=== PATIENT | female | born 1990 | race Caucasian/White ===

== ENCOUNTER → 2018-04-22 17:28 | Outpatient (CLI) | payer OTHER, MEDICAID, SELFPAY ==
[2018-04-22 17:44] LABS: Add Manual Diff / Slide Review NO; Basophils Percent Auto 0.3 % (0-2); Eosinophils Percent Auto 0.6 % (2-4); Hematocrit 37.2 % (36-46); Hemoglobin 12.2 g/dL (12.0-16.0); Lymphocytes Percent Auto 34.3 % (25-40); Mean Corpuscular HGB Conc 32.9 % (30-36); Mean Corpuscular Hemoglobin 25.5 PG (26-34); Mean Corpuscular Volume 77.4 fL (80-100); Monocytes Percent Auto 5.7 % (3-14); Neutrophils Absolute Auto 3900 /uL (3000-5900); Neutrophils Percent Auto 59.1 % (50-75); Platelet Count 309 X10^3/uL (150-400); Red Blood Cell Count 4.81 X10^6/uL (4.0-5.2); Red Cell Distribution Width 13.7 % (11.6-14.8); White Blood Cell Count 6.6 X10^3/uL (4.5-11.0)
== END ==
PROVIDERS: Family Provider Obstetrics & Gynecology; PCP Obstetrics & Gynecology; Visit Provider Internal Medicine
DX: Z51.81 Encounter for therapeutic drug level monitoring (principal)
CPT/HCPCS: 36415; 85025

== ENCOUNTER → 2018-06-22 16:25 | Outpatient (CLI) | payer OTHER, MEDICAID, SELFPAY ==
[2018-06-22 17:24] LABS: Add Manual Diff / Slide Review NO; Basophils Percent Auto 0.1 % (0-2); Eosinophils Percent Auto 0.7 % (2-4); Mean Corpuscular HGB Conc 33.3 % (30-36); Mean Corpuscular Volume 78.1 fL (80-100); Monocytes Percent Auto 8.7 % (3-14); Neutrophils Absolute Auto 4600 /uL (3000-5900); Neutrophils Percent Auto 63.5 % (50-75); Platelet Count 288 X10^3/uL (150-400); Red Blood Cell Count 4.61 X10^6/uL (4.0-5.2); Red Cell Distribution Width 13.4 % (11.6-14.8); White Blood Cell Count 7.2 X10^3/uL (4.5-11.0)
== END ==
PROVIDERS: PCP Internal Medicine; Visit Provider Internal Medicine
DX: E05.00 Thyrotoxicosis with diffuse goiter without thyrotoxic crisis or storm (principal)
CPT/HCPCS: 36415; 85025

== ENCOUNTER → 2018-09-12 12:23 | Outpatient (CLI) | payer OTHER, MEDICAID, SELFPAY ==
[2018-09-12 13:14] LABS: Add Manual Diff / Slide Review NO; Basophils Percent Auto 0.4 % (0-2); Hematocrit 38.9 % (36-46); Hemoglobin 12.7 g/dL (12.0-16.0); Lymphocytes Percent Auto 28.5 % (25-40); Mean Corpuscular HGB Conc 32.6 % (30-36); Mean Corpuscular Hemoglobin 25.5 PG (26-34); Mean Corpuscular Volume 78.4 fL (80-100); Monocytes Percent Auto 7.2 % (3-14); Neutrophils Absolute Auto 3700 /uL (3000-5900); Neutrophils Percent Auto 63.9 % (50-75); Platelet Count 298 X10^3/uL (150-400); Red Blood Cell Count 4.96 X10^6/uL (4.0-5.2); Red Cell Distribution Width 13.7 % (11.6-14.8); White Blood Cell Count 5.8 X10^3/uL (4.5-11.0)
[2018-09-12 14:13] LABS: Alanine Aminotransferase 32 IU/L (9-52); Albumin 4.3 g/dL (3.5-5.0); Albumin Globulin Ratio 1.2 (1.0-2.8); Alkaline Phosphatase 85 U/L (38-126); Aspartate Aminotransferase 29 IU/L (14-36); Bilirubin Total 0.3 mg/dL (0.2-1.3); Blood Urea Nitrogen 12 mg/dL (7-17); Carbon Dioxide 27 mmol/L (22-32); Chloride 102 mmol/L (98-107); Estimated Glomerular Filt Rate > 60.0 mL/min (>60); Globulin 3.5 g/dL (1.7-4.1); Glucose 90 mg/dL (70-100); HEMOLYSIS < 15 (0-50); Potassium 4.2 mmol/L (3.4-5.1); Sodium 142 mmol/L (137-145); Total Protein 7.8 g/dL (6.3-8.2)
[2018-09-12 20:58] LABS: Thyroid Stimulating Hormone < 0.02 uIU/mL (0.47-4.68)
[2018-09-14 15:02] LABS: Triiodothyronine T3 Total 200 ng/dL (76-181)
== END ==
PROVIDERS: Family Provider Obstetrics & Gynecology; PCP Internal Medicine; Visit Provider Internal Medicine
DX: Z51.81 Encounter for therapeutic drug level monitoring (principal)
CPT/HCPCS: 36415; 80053; 84439; 84443; 84480; 85025

== ENCOUNTER → 2018-10-24 11:28 | Outpatient (CLI) | payer OTHER, MEDICAID, SELFPAY ==
[2018-10-24 12:15] LABS: Add Manual Diff / Slide Review NO; Basophils Percent Auto 0.4 % (0-2); Hematocrit 38.2 % (36-46); Hemoglobin 12.6 g/dL (12.0-16.0); Lymphocytes Percent Auto 35.2 % (25-40); Mean Corpuscular HGB Conc 33.1 % (30-36); Mean Corpuscular Hemoglobin 26.6 PG (26-34); Mean Corpuscular Volume 80.4 fL (80-100); Monocytes Percent Auto 7.1 % (3-14); Neutrophils Absolute Auto 3400 /uL (1500-7000); Neutrophils Percent Auto 57.3 % (50-75); Platelet Count 329 X10^3/uL (150-400); Red Blood Cell Count 4.75 X10^6/uL (4.0-5.2); Red Cell Distribution Width 14.4 % (11.6-14.8); White Blood Cell Count 5.9 X10^3/uL (4.5-11.0)
[2018-10-24 12:46] LABS: Alanine Aminotransferase 29 IU/L (9-52); Albumin 4.2 g/dL (3.5-5.0); Albumin Globulin Ratio 1.4 (1.0-2.8); Alkaline Phosphatase 82 U/L (38-126); Aspartate Aminotransferase 22 IU/L (14-36); BUN Creatinine Ratio 18.3 (6-22); Bilirubin Total 0.4 mg/dL (0.2-1.3); Blood Urea Nitrogen 11 mg/dL (7-17); Calcium 9.1 mg/dL (8.4-10.2); Carbon Dioxide 29 mmol/L (22-32); Chloride 101 mmol/L (98-107); Estimated Glomerular Filt Rate > 60.0 mL/min (>60); Globulin 3.1 g/dL (1.7-4.1); Glucose 69 mg/dL (70-100); HEMOLYSIS < 15 (0-50); Potassium 4.5 mmol/L (3.4-5.1); Sodium 140 mmol/L (137-145); Total Protein 7.3 g/dL (6.3-8.2)
[2018-10-24 13:02] LABS: Free T4, Direct Thyroxine 1.07 ng/dL (0.78-2.19)
[2018-10-24 13:16] LABS: Thyroid Stimulating Hormone < 0.02 uIU/mL (0.47-4.68)
== END ==
PROVIDERS: PCP Internal Medicine; Visit Provider Internal Medicine
DX: E05.00 Thyrotoxicosis with diffuse goiter without thyrotoxic crisis or storm (principal)
CPT/HCPCS: 36415; 80053; 84439; 84443; 85025

== ENCOUNTER → 2018-12-21 11:09 | Outpatient (CLI) | payer OTHER, MEDICAID, SELFPAY ==
--- NOTE | 2018-12-21 11:11 | DI.US.S_ITS ---
PROCEDURE: US PELVIC COMPLETE INDICATIONS: Left side pain, hx ovarian cyst TECHNIQUE: Real-time scanning was performed of the pelvic organs, with image documentation. Additional endovaginal scanning was necessary due to incomplete visualization of the adnexal and endometrial structures by transabdominal scanning. COMPARISON: [facility], US, PELVIC COMPLETE, 01/04/2018, 16:13. [facility], US, PELVIC COMPLETE, 12/03/2017, 12:18. [facility], US, PELVIC COMPLETE, 02/15/2018, 11:10. FINDINGS: Transabdominal scanning: Limited scanning through the kidneys shows no hydronephrosis. There is a small amount of free fluid seen within the left adnexal region. Endovaginal scanning: Uterus: Uterus is normal in size at 8.5 x 4.7 x 5.4 cm. The endometrium measures 13 mm in combined thickness. Ovaries: The right ovary measures 3.5 x 2.2 x 2.5 cm. The left ovary measures 4.3 by 2 x 2 0.6 cm and demonstrates a complex cyst with peripheral vascular flow that measures up to 19 mm. The ovaries otherwise have a normal sonographic appearance. No adnexal masses are seen. IMPRESSION: There is a likely hemorrhagic cyst involving the left ovary, with mild free fluid seen within the left adnexal region. At clinical discretion, a followup pelvic ultrasound is suggested in 6 weeks to assure resolution/ improvement. Dictated by: Jeff Paulino M.D. on 12/21/2018 at 12:23 Approved by: Jeff Paulino M.D. on 12/21/2018 at 12:27
== END ==
PROVIDERS: Family Provider Obstetrics & Gynecology; Visit Provider Obstetrics & Gynecology
DX: N83.292 Other ovarian cyst, left side (principal)
CPT/HCPCS: 76856

== ENCOUNTER → 2018-12-21 11:56 | Outpatient (CLI) | payer OTHER, MEDICAID, SELFPAY ==
[2018-12-21 12:32] LABS: Add Manual Diff / Slide Review NO; Basophils Absolute Auto 0 /uL (0-100); Basophils Percent Auto 0.3 % (0-2); Eosinophils Absolute Auto 0 /uL (0-450); Eosinophils Percent Auto 0.1 % (2-4); Hematocrit 39.4 % (36-46); Hemoglobin 12.6 g/dL (12.0-16.0); Lymphocytes Absolute Auto 2100 /uL (1100-4500); Lymphocytes Percent Auto 31.7 % (25-40); Mean Corpuscular Hemoglobin 26.2 PG (26-34); Mean Corpuscular Volume 81.8 fL (80-100); Monocytes Absolute Auto 400 /uL (0-900); Monocytes Percent Auto 5.8 % (3-14); Neutrophils Absolute Auto 4000 /uL (1500-7000); Neutrophils Percent Auto 62.1 % (50-75); Platelet Count 312 X10^3/uL (150-400); Red Blood Cell Count 4.82 X10^6/uL (4.0-5.2); Red Cell Distribution Width 14.9 % (11.6-14.8); White Blood Cell Count 6.5 X10^3/uL (4.5-11.0)
[2018-12-23 12:24] LABS: Alanine Aminotransferase 35 IU/L (9-52); Albumin 4.4 g/dL (3.5-5.0); Albumin Globulin Ratio 1.3 (1.0-2.8); Alkaline Phosphatase 66 U/L (38-126); Aspartate Aminotransferase 25 IU/L (14-36); Bilirubin Total 0.3 mg/dL (0.2-1.3); Blood Urea Nitrogen 12 mg/dL (7-17); Calcium 9.1 mg/dL (8.4-10.2); Carbon Dioxide 26 mmol/L (22-32); Chloride 102 mmol/L (98-107); Estimated Glomerular Filt Rate > 60.0 mL/min (>60); Globulin 3.3 g/dL (1.7-4.1); Glucose 83 mg/dL (70-100); HEMOLYSIS < 15 (0-50); Potassium 4.2 mmol/L (3.4-5.1); Sodium 139 mmol/L (137-145); Total Protein 7.7 g/dL (6.3-8.2)
[2018-12-23 12:41] LABS: Free T4, Direct Thyroxine 0.87 ng/dL (0.78-2.19)
[2018-12-23 12:55] LABS: Thyroid Stimulating Hormone < 0.02 uIU/mL (0.47-4.68)
== END ==
PROVIDERS: Family Provider Obstetrics & Gynecology; Visit Provider Internal Medicine
DX: E05.00 Thyrotoxicosis with diffuse goiter without thyrotoxic crisis or storm (principal)
CPT/HCPCS: 36415; 80053; 84439; 84443; 85025

== ENCOUNTER 2019-02-02 08:23 | Day surgery (SDC) | payer OTHER, MEDICAID, SELFPAY ==
[2019-01-24 07:27] VITALS: BMI 39.6
[2019-02-02] VITALS (14 sets, daily range): BP systolic 75–124; BP diastolic 43–81; PULSE 72–97; RESP 10–19; TEMP 36.6–37.4; O2SAT 96–100; BMI 43.7
--- NOTE | 2019-02-02 | PATH_ITS ---
[facility] Accession Number: [id number] . 01 Material submitted: . body - LEFT FALLOPIAN TUBE AND OVARY . 02 Diagnosis: Left Ovary and Fallopian Tube: Multiple benign serous cysts, ovary. Multiple follicular cysts, ovary. Fallopian tube unremarkable. MRV/02/06/2019 . 02 Electronically signed: . Hakeem Carranza MD, Pathologist NPI- [id number] . 01 Gross description: . Received in formalin, labeled with the patient's name and left fallopian tube and ovary, is an ovary and a detached fallopian tube. The ovary weighs 10 grams and measures 4.0 x 2.9 x 1.8 cm. The external surface of the ovary is brooks-perdue and cerebriform. The cut surface of the ovary is perdue-brown with a well-defined 1.1 cm yellow nodule resembling corpus luteum. There are also multiple intraparenchymal cysts ranging from 0.3 to 1.1 cm with a smooth lining and filled with serous fluid. The fallopian tube has a red-brown external surface and measures 3.7 cm in length by 0.6 cm in diameter. [employer] sections are submitted as follows: A1-A3 - ovary; A4 - fallopian tube cross-sections and fimbriated end. (BINTA:[id number]) /MRV . 02 Pathologist provided ICD-10: N83.202 . 02 CPT . 041751 Performed at: 01 [facility] [address] [id number] MD Bhavik Chance MD Phone: [phone] Performed at: 02 [facility] [address] [place], [place] [id number] MD Marbella Ventura MD Phone: [phone]
[2019-02-02] MEDS: LACTATED RINGERS 1,000 ML 42 ML IV ×2 (08:45→12:04)
--- NOTE | 2019-02-02 10:07 | PM.PREOP ---
Pre-operative Note Interval Note History & Physical reviewed/Exam performed by Physician: Yes Changes to H&P: No
--- NOTE | 2019-02-02 10:07 | PM.HP.1 ---
History of Present Illness Date Patient Seen: 02/02/19 Time Patient Seen: 10:08 Chief complaint: [id number] Narrative: Patient is a 28-year-old 3 para 3 who presents for a laparoscopic left salpingo oophorectomy due to a persistent left ovarian mass Patient History Medical History (Updated 01/24/19 @ 07:38 by Love Irizarry RN) Anxiety and depression (Acute) Graves' disease (Acute) Sinus infection (Acute ~07/2018) Anemia (Chronic ~2013) Chronic back pain (Chronic ~2006) Headache (Chronic ~2006) Migraines (Chronic ~2006) Ovarian cyst (Chronic ~2014) Chicken pox (Resolved ~1999) Surgical History (Updated 04/04/18 @ 15:04 by Ashly Wright) Status post laparoscopic cholecystectomy (~2013) Family History (Updated 04/04/18 @ 15:03 by Ashly Wright) Grandmother Age: 76 Hypertension High cholesterol Mental health problem Stroke Diabetes mellitus Kidney failure Mother Age: 46 Depression Colitis Arthritis Smoker Early menopause Grandfather No problems noted. Social History household members: spouse and children Smoking Status: Never smoker alcohol intake: current Family & Social History Family History (Updated 04/04/18 @ 15:03 by Ashly Wright) Grandmother Age: 76 Hypertension High cholesterol Mental health problem Stroke Diabetes mellitus Kidney failure Mother Age: 46 Depression Colitis Arthritis Smoker Early menopause Grandfather No problems noted. Social History: household members spouse,children Tobacco & Substance use: Smoking Status Never smoker alcohol intake current alcohol intake frequency holiday/special occasion Substance Use Type does not use Meds Home Medications Medication Instructions Recorded Confirmed Type methimazole 5 mg tablet 15 mg PO TID tab 08/10/18 02/02/19 History sertraline [Zoloft] 50 mg PO QDAY #90 tab 08/15/18 02/02/19 Rx calcium carbonate [Tums] 300 mg PO PRN PRN 02/02/19 02/02/19 History Allergies Allergy/AdvReac Type Severity Reaction Status Date / Time oxycodone [From Percocet] AdvReac Intermediate Vomiting Verified 02/02/19 08:38 Exam Vital Signs (past 8 hours): - 02/02/19 08:46 Temperature 99.1 F Pulse Rate 97 H Respiratory Rate 16 Blood Pressure 116/81 Pulse Oximetry 99 Oxygen Delivery Method Room Air Narrative Exam Narrative: HEENT: No thyromegaly, no anterior cervical or supraclavicular lymphadenopathy. Lungs:Clear to auscultation bilaterally, no wheezes. Cardiovascular: Regular rate and rhythm, no murmurs, rubs, or gallops. Abdomen: Well-healed laparoscopy scars. No hepatosplenomegaly. No masses palpable. External genitalia: Normal Vagina: Normal Cervix: Normal Bimanual exam: 7 Week size uterus. Mobile. Rectal: No masses. Ultrasound: Persistent complex left ovarian mass Assessment & Plan Assessment & Plan narrative: Assessment: 28-year-old 3 para 3 with a persistent left ovarian complex mass Plan: Laparoscopic left salpingo oophorectomy The risks, benefits, and alternatives to the procedure were explained to the patient. The risks including bleeding, infection, injury to the bowel, bladder, or ureters. She understands these risks and agrees to proceed. The consent form was signed. Time Spent With Patient Time with patient: 15-24 minutes
--- NOTE | 2019-02-02 11:13 | SUR.OPER ---
Lithotomy on padded OR bed, head on pillow, both arms padded and tucked.. Legs secured in padded yellow fins stirrups.
[2019-02-02] MEDS: BUPIVACAINE 0.5% W/ EPI (PF) VIAL 30 ML INJ (11:20)
[2019-02-02] MEDS: KETOROLAC 30 MG/ML VIAL IV (12:00)
[2019-02-02] MEDS: HYDROCODONE/ACET 5/325 TABLET 2 TAB PO (12:55)
--- NOTE | 2019-02-02 13:10 | SUR.PHASEII ---
pt tolerating po fluids and apple sauce, IV patent and infusing, abdomen dressings remain dry and intact, pperi pad with small amt of drainage, pt medicated for c/o cramps coming back a little bit
--- NOTE | 2019-02-02 13:51 | SUR.PHASEII ---
Report received from Damien, who stated she had reviewed d/c instructions
--- NOTE | 2019-02-08 06:54 | PM.GYNOP.1 ---
Operative Date/Time/Diagnoses Date of procedure: 02/02/19 Time of procedure: 11:30 Pre-op diagnosis: Left ovarian cyst Post-op diagnosis: same Procedure: Procedures Operation Date: 02/02/19 10:00 Actual Procedures Side Surgeon p Laparoscopic Oophorectomy Salpingoophorectomy Left Dominga Gallo MD Indications: Persistent left ovarian cyst Surgeon: Dominga Gallo Anesthesia Type: General Operative Notes Findings: 5 cm left ovarian cyst Normal tubes Normal uterus Normal liver and appendix Closure Type: primary Specimen(s): left tube & ovary Estimated blood loss (mL): 5 Procedure in detail: After informed consent was obtained, the patient was taken to the operating room where she was placed in the dorsal supine position. After adequate general endotracheal anesthesia was achieved, she was placed in the dorsal lithotomy position, and prepped and draped in the usual sterile fashion. A time-out was performed. A bivalve speculum was placed into the vagina and the anterior lip of the cervix grasped with a single-tooth tenaculum. The cervical os was sequentially dilated until the Zumi uterine manipulator could pass easily into the endometrial cavity. The single-tooth tenaculum was removed from the anterior lip of the cervix. The bivalve speculum was removed from the vagina. Attention was then turned to the abdomen where 6 cc of 0.5% Marcaine with epinephrine were injected in the umbilical fold. A 5 mm incision was made. The long Veress needle was placed into the peritoneal cavity, and its placement confirmed by aspiration drop test. The abdominal cavity was insufflated with 4.5 L of CO2. The Veress needle was removed, and a long 5 mm trocar was placed without difficulty. 2 other 5 mm incisions were made midway between the pubic symphysis and umbilicus, 4 cm lateral to the midline. 2 long 5 mm trocars were placed under direct visualization. the pelvis and abdomen were examined with the findings noted above. An atraumatic grasper was used to grasp the left tube at the fimbriated end. Using the PlasmaKinetic was settings of 40 w, the infundibulopelvic ligament on the left side was cauterized and cut as was the broad ligament. This was continued all the way down to the cornua of the uterus and the tube was transected at the cornu of the uterus. Hemostasis was achieved. The umbilical trocar was removed. The incision was extended to 10 mm. A long 10 mm trocar was placed. the endobag was placed through the umbilical trocar and the camera was moved to the right lateral trocar. The left tube and ovary were placed into the endobag. The trocar was removed. a needle was placed into the left ovary and 10 cc of fluid were drained. The tube and ovary were then removed inside the endobag through the umbilical incision. The pelvis was examined and hemostasis was achieved. The instruments were removed from the abdomen. The CO2 was allowed to escape. The umbilical incision was closed on the fascia with 0 Vicryl. All of the incisions were closed with 4 0 undyed Vicryl in a subcuticular fashion. Steri-Strips, 2 x 2, and op site were placed. The Zumi uterine manipulator was removed from the uterus. Sponge, lap, and instrument counts were correct x2. The patient tolerated the procedure well and was taken to PACU in stable condition. Complications: none Post-operative Condition: stable Disposition: PACU Plan for aftercare: Home after recovery
== END 2019-02-02 13:35 | disposition home or self-care (01) ==
PROVIDERS: Visit Provider Obstetrics & Gynecology
PROC: (CPT 58661; principal; 2019-02-02 10:00)
DX: N83.202 Unspecified ovarian cyst, left side (principal); F41.9 Anxiety disorder, unspecified; F32.9 Major depressive disorder, single episode, unspecified; E05.00 Thyrotoxicosis with diffuse goiter without thyrotoxic crisis or storm; D64.9 Anemia, unspecified
CPT/HCPCS: 58661; J0330; J1100; J1885; J2405; J2704; J3010

== ENCOUNTER → 2019-03-22 13:40 | Outpatient (CLI) | payer OTHER, MEDICAID, SELFPAY ==
[2019-03-22 14:40] LABS: Add Manual Diff / Slide Review NO; Basophils Absolute Auto 0 /uL (0-100); Basophils Percent Auto 0.5 % (0-2); Eosinophils Absolute Auto 0 /uL (0-450); Eosinophils Percent Auto 0.3 % (2-4); Hematocrit 38.4 % (36-46); Hemoglobin 12.6 g/dL (12.0-16.0); Lymphocytes Absolute Auto 1800 /uL (1100-4500); Lymphocytes Percent Auto 28.3 % (25-40); Mean Corpuscular HGB Conc 32.8 % (30-36); Mean Corpuscular Hemoglobin 27.2 PG (26-34); Mean Corpuscular Volume 83.1 fL (80-100); Monocytes Absolute Auto 400 /uL (0-900); Monocytes Percent Auto 6.1 % (3-14); Neutrophils Absolute Auto 4100 /uL (1500-7000); Neutrophils Percent Auto 64.8 % (50-75); Platelet Count 305 X10^3/uL (150-400); Red Blood Cell Count 4.62 X10^6/uL (4.0-5.2); Red Cell Distribution Width 14.7 % (11.6-14.8); White Blood Cell Count 6.3 X10^3/uL (4.5-11.0)
[2019-03-22 14:51] LABS: Alanine Aminotransferase 25 IU/L (9-52); Albumin 4.4 g/dL (3.5-5.0); Albumin Globulin Ratio 1.2 (1.0-2.8); Alkaline Phosphatase 65 U/L (38-126); Aspartate Aminotransferase 24 IU/L (14-36); Bilirubin Total 0.3 mg/dL (0.2-1.3); Blood Urea Nitrogen 12 mg/dL (7-17); Calcium 9.7 mg/dL (8.4-10.2); Carbon Dioxide 31 mmol/L (22-32); Chloride 102 mmol/L (98-107); Estimated Glomerular Filt Rate > 60.0 mL/min (>60); Globulin 3.6 g/dL (1.7-4.1); Glucose 77 mg/dL (70-100); HEMOLYSIS < 15 (0-50); Sodium 140 mmol/L (137-145)
[2019-03-22 16:00] LABS: Free T4, Direct Thyroxine 0.66 ng/dL (0.78-2.19)
[2019-03-22 16:13] LABS: Thyroid Stimulating Hormone 5.55 uIU/mL (0.47-4.68)
== END ==
PROVIDERS: Visit Provider Internal Medicine
DX: E05.00 Thyrotoxicosis with diffuse goiter without thyrotoxic crisis or storm (principal); Z51.81 Encounter for therapeutic drug level monitoring
CPT/HCPCS: 36415; 80053; 84439; 84443; 85025

== ENCOUNTER → 2019-05-24 14:59 | Outpatient (CLI) | payer OTHER, MEDICAID, SELFPAY ==
[2019-05-24 15:35] LABS: Add Manual Diff / Slide Review NO; Basophils Absolute Auto 0 /uL (0-100); Basophils Percent Auto 0.6 % (0-2); Eosinophils Absolute Auto 100 /uL (0-450); Eosinophils Percent Auto 1.2 % (2-4); Hemoglobin 11.9 g/dL (12.0-16.0); Lymphocytes Absolute Auto 2200 /uL (1100-4500); Lymphocytes Percent Auto 28.2 % (25-40); Mean Corpuscular HGB Conc 33.2 % (30-36); Mean Corpuscular Hemoglobin 27.5 PG (26-34); Monocytes Absolute Auto 500 /uL (0-900); Monocytes Percent Auto 6.6 % (3-14); Neutrophils Absolute Auto 4800 /uL (1500-7000); Neutrophils Percent Auto 63.4 % (50-75); Platelet Count 293 X10^3/uL (150-400); Red Blood Cell Count 4.34 X10^6/uL (4.0-5.2); Red Cell Distribution Width 13.8 % (11.6-14.8); White Blood Cell Count 7.6 X10^3/uL (4.5-11.0)
[2019-05-24 16:35] LABS: Alanine Aminotransferase 24 IU/L (9-52); Albumin 4.1 g/dL (3.5-5.0); Albumin Globulin Ratio 1.4 (1.0-2.8); Alkaline Phosphatase 51 U/L (38-126); Aspartate Aminotransferase 21 IU/L (14-36); Bilirubin Total 0.5 mg/dL (0.2-1.3); Blood Urea Nitrogen 12 mg/dL (7-17); Calcium 9.6 mg/dL (8.4-10.2); Carbon Dioxide 29 mmol/L (22-32); Chloride 100 mmol/L (98-107); Estimated Glomerular Filt Rate > 60.0 mL/min (>60); Glucose 85 mg/dL (70-100); HEMOLYSIS < 15 (0-50); Potassium 4.3 mmol/L (3.4-5.1); Sodium 139 mmol/L (137-145); Total Protein 7.1 g/dL (6.3-8.2)
[2019-05-24 16:51] LABS: Free T4, Direct Thyroxine 0.79 ng/dL (0.78-2.19)
[2019-05-24 17:06] LABS: Thyroid Stimulating Hormone 2.85 uIU/mL (0.47-4.68)
== END ==
PROVIDERS: Visit Provider Internal Medicine
DX: E05.00 Thyrotoxicosis with diffuse goiter without thyrotoxic crisis or storm (principal); Z51.81 Encounter for therapeutic drug level monitoring
CPT/HCPCS: 36415; 80053; 84439; 84443; 85025

== ENCOUNTER → 2019-07-31 07:41 | Outpatient (CLI) | payer OTHER, MEDICAID, SELFPAY ==
[2019-07-31 08:46] LABS: Add Manual Diff / Slide Review NO; Basophils Absolute Auto 0 /uL (0-100); Basophils Percent Auto 0.8 % (0-2); Eosinophils Absolute Auto 100 /uL (0-450); Eosinophils Percent Auto 1.2 % (2-4); Hematocrit 38.2 % (36-46); Hemoglobin 12.6 g/dL (12.0-16.0); Lymphocytes Absolute Auto 2000 /uL (1100-4500); Lymphocytes Percent Auto 34.2 % (25-40); Mean Corpuscular Hemoglobin 27.3 PG (26-34); Mean Corpuscular Volume 82.7 fL (80-100); Monocytes Absolute Auto 400 /uL (0-900); Neutrophils Absolute Auto 3500 /uL (1500-7000); Neutrophils Percent Auto 57.8 % (50-75); Platelet Count 322 X10^3/uL (150-400); Red Blood Cell Count 4.62 X10^6/uL (4.0-5.2); Red Cell Distribution Width 13.9 % (11.6-14.8)
[2019-07-31 09:11] LABS: Free T4, Direct Thyroxine 1.06 ng/dL (0.78-2.19)
[2019-07-31 09:25] LABS: Thyroid Stimulating Hormone 0.95 uIU/mL (0.47-4.68)
[2019-08-02 17:04] LABS: Triiodothyronine T3 Total 122 ng/dL (76-181)
== END ==
PROVIDERS: Visit Provider Internal Medicine
DX: E05.00 Thyrotoxicosis with diffuse goiter without thyrotoxic crisis or storm (principal); E05.90 Thyrotoxicosis, unspecified without thyrotoxic crisis or storm
CPT/HCPCS: 36415; 84439; 84443; 84480; 85025

== ENCOUNTER 2020-04-28 13:00 | Emergency (ER) | payer SELFPAY ==
[2020-04-28] VITALS (9 sets, daily range): BP systolic 99–121; BP diastolic 56–75; PULSE 69–90; RESP 14–16; TEMP 36.8; O2SAT 92–100
[2020-04-28] MEDS: SODIUM CHLORIDE 0.9% 1,000 ML 1000 ML IV (14:14)
[2020-04-28 14:23] LABS: Add Manual Diff / Slide Review NO; Basophils Absolute Auto 0 /uL (0-100); Basophils Percent Auto 0.3 % (0-2); Eosinophils Absolute Auto 100 /uL (0-450); Eosinophils Percent Auto 0.6 % (2-4); Hematocrit 38.4 % (36-46); Hemoglobin 12.8 g/dL (12.0-16.0); Lymphocytes Absolute Auto 1600 /uL (1100-4500); Mean Corpuscular HGB Conc 33.3 % (30-36); Mean Corpuscular Hemoglobin 27.2 PG (26-34); Mean Corpuscular Volume 81.6 fL (80-100); Monocytes Absolute Auto 500 /uL (0-900); Monocytes Percent Auto 5.7 % (3-14); Neutrophils Absolute Auto 7300 /uL (1500-7000); Neutrophils Percent Auto 76.4 % (50-75); Platelet Count 282 X10^3/uL (150-400); Red Blood Cell Count 4.71 X10^6/uL (4.0-5.2); Red Cell Distribution Width 14.5 % (11.6-14.8); White Blood Cell Count 9.6 X10^3/uL (4.5-11.0)
[2020-04-28 14:32] LABS: Alanine Aminotransferase 22 IU/L (<35); Albumin 4.5 g/dL (3.5-5.0); Albumin Globulin Ratio 1.3 (1.0-2.8); Alkaline Phosphatase 62 U/L (38-126); Amylase 63 U/L (30-110); Aspartate Aminotransferase 27 IU/L (14-36); BUN Creatinine Ratio 15.3 (6-22); Bilirubin Total 0.4 mg/dL (0.2-1.3); Blood Urea Nitrogen 9 mg/dL (7-17); Calcium 9.4 mg/dL (8.4-10.2); Carbon Dioxide 26 mmol/L (22-32); Chloride 103 mmol/L (98-107); Estimated Glomerular Filt Rate > 60.0 mL/min (>60); Globulin 3.4 g/dL (1.7-4.1); Glucose 98 mg/dL (70-100); HEMOLYSIS < 15 (0-50); Lipase 65 U/L (23-300); Potassium 3.9 mmol/L (3.4-5.1); Sodium 137 mmol/L (137-145); Total Protein 7.9 g/dL (6.3-8.2)
--- NOTE | 2020-04-28 14:36 | DI.US.S_ITS ---
PROCEDURE: US PELVIC COMPLETE INDICATIONS: PAIN TECHNIQUE: Real-time scanning was performed of the pelvic organs, with image documentation. Additional endovaginal scanning was necessary due to incomplete visualization of the adnexal and endometrial structures by transabdominal scanning. COMPARISON: None. FINDINGS: Transabdominal scanning: Limited scanning through the kidneys shows no hydronephrosis. No pathologic free abdominal or pelvic fluid. Endovaginal scanning: Uterus: Uterus is normal in size at 6.9 x 4.3 x 5.4 cm. The endometrium measures 8 mm in combined thickness. Ovaries: Right ovary measures 6.0 x 2.9 x 2.8 cm. It contains a probable hemorrhagic cyst measuring 2.6 x 1.8 x 2.3 cm. There is normal intraovarian flow in the right ovary. Left ovary is surgically absent. No abnormal adnexal masses or fluid collections. IMPRESSION: 1. Probable hemorrhagic cyst of the right ovary measuring 2.6 cm in maximum diameter. 2. Otherwise unremarkable pelvic ultrasound. Dictated by: Ricardo Waldrop M.D. on 04/28/2020 at 14:37 Approved by: Ricardo Waldrop M.D. on 04/28/2020 at 14:39
[2020-04-28] MEDS: MORPHINE 4 MG/ML INJ IV (14:56)
[2020-04-28] MEDS: ONDANSETRON 4 MG/2 ML INJ IV ×2 (14:57→16:16)
[2020-04-28] MEDS: HYDROCODONE/ACET 5/325 TABLET 1 TAB PO (16:16)
--- NOTE | 2020-04-28 17:43 | ED.FEMALEGU ---
HPI - Female Genitourinary <LILIBETH Zhao - Last Filed: 04/28/20 17:52> General Chief complaint: Urogenital-Female Stated complaint: Pelvic Pain and Pressure Time Seen by Provider: 04/28/20 13:32 Source: patient Mode of arrival: Ambulatory Limitations: no limitations History of Present Illness HPI Narrative: The patient is a 29-year-old female nonsmoker with history of ovarian cyst who presents with a chief complaint of pelvic pain. It started earlier today all of a sudden. She has history of a complex left ovarian cyst and subsequently had surgery to remove her ovary. She denies any fevers, complains of nausea no vomiting. She denies any dysuria urgency or frequency. She denies any possibility of . She denies any possibility of sexually transmitted infections. She denies any vaginal discharge or vaginal bleeding. She does not have an IUD. She tracks her menstrual cycles and states that she ovulated last week. She denies any genital rashes. Related Data Home Medications Medication Instructions Recorded Confirmed methimazole 5 mg tablet 15 mg PO TID tab 08/10/18 02/20/19 calcium carbonate [Tums] 300 mg PO PRN PRN 02/02/19 02/20/19 Previous Rx's Medication Instructions Recorded sertraline [Zoloft] 50 mg PO QDAY #90 tab 04/24/19 hydrocodone-acetaminophen [Tad] 1 tab PO Q4-6H PRN #7 tab 04/28/20 ketorolac 10 mg PO TID #15 tab 04/28/20 ondansetron 4 mg PO Q6H PRN #10 tab 04/28/20 Allergies Allergy/AdvReac Type Severity Reaction Status Date / Time oxycodone [From Percocet] AdvReac Intermediate Vomiting Verified 02/20/19 14:35 Review of Systems <LILIBETH Zhao - Last Filed: 04/28/20 17:52> Review of Systems Narrative: GENERAL: Denies chills, fatigue, malaise, fever, sweats. HEENT: Denies sinus pain, ear pain, sore throat, difficulty swallowing, dizziness. RESPIRATORY: Denies dyspnea, cough, wheezing, hemoptysis, sputum. CARDIOVASCULAR: Denies chest pain, palpitations, orthopnea, edema, GASTROINTESTINAL: Denies nausea, vomiting, abdominal pain, diarrhea, constipation, melena. : See HPI MUSCULOSKELETAL: denies weakness, joint pain, or bony pain SKIN: Denies rash, skin lesions, or other NEUROLOGIC: Denies weakness, headache, numbness, change in speech, confusion, seizures, incoordination. PSYCHIATRIC: No concerning psychosocial issues. 12 point review of systems is negative except for those stated above Patient History <LILIBETH Zhao - Last Filed: 04/28/20 17:52> Medical History Anemia (Chronic ~2013) Anxiety and depression (Acute) Chicken pox (Resolved ~1999) Chronic back pain (Chronic ~2006) Graves' disease (Acute) Headache (Chronic ~2006) Migraines (Chronic ~2006) Ovarian cyst (Chronic ~2014) Sinus infection (Acute ~07/2018) Surgical History Status post laparoscopic cholecystectomy (~2013) Family History Grandmother Age: 78 Hypertension High cholesterol Mental health problem Stroke Diabetes mellitus Kidney failure Mother Age: 48 Depression Colitis Arthritis Smoker Early menopause Grandfather No problems noted. alcohol intake frequency: holidays/special occasions only Substance Use Type: does not use Exam <LILIBETH Zhao - Last Filed: 04/28/20 17:52> Narrative Exam Narrative: GENERAL: Obese female no stretcher in no acute distress HEAD: Atraumatic. Normocephalic. No temporal or scalp tenderness. EYES: Pupils equal round and reactive. Extraocular motions intact. No scleral icterus. No injection or drainage. ENT: Nose without bleeding, purulent drainage or septal hematoma. Throat without erythema, tonsillar hypertrophy or exudate. Uvula midline. Airway patent. NECK: Trachea midline. No JVD or lymphadenopathy. Supple, nontender, no meningeal signs. CARDIOVASCULAR: Regular rate and rhythm RESPIRATORY: Clear to auscultation. Breath sounds equal bilaterally. No wheezes, rales, or rhonchi. No cough. No increased respiratory effort. No accessory muscle use. GASTROINTESTINAL: Abdomen soft, diffuse suprapubic tenderness to palpation, nondistended. No hepato-splenomegaly, or palpable masses. No guarding. EXTREMITIES: No clubbing, cyanosis, or edema. No joint tenderness, effusion, or edema noted. BACK: Nontender without deformity or crepitance. No flank tenderness. NEURO: AOx3. SKIN: No rash or erythema on visible skin Initial Vital Signs Initial Vital Signs: Vital Signs Temperature 98.3 F 04/28/20 13:22 Pulse Rate 89 04/28/20 13:22 Respiratory Rate 16 04/28/20 13:22 Blood Pressure 121/75 04/28/20 13:22 Pulse Oximetry 99 04/28/20 13:22 <Ronald Campbell MD - Last Filed: 04/28/20 17:59> Initial Vital Signs Initial Vital Signs: Vital Signs Temperature 98.3 F 04/28/20 13:22 Pulse Rate 89 04/28/20 13:22 Respiratory Rate 16 04/28/20 13:22 Blood Pressure 121/75 04/28/20 13:22 Pulse Oximetry 99 04/28/20 13:22 Scores <LILIBETH Zhao - Last Filed: 04/28/20 17:52> GCS [place] coma scale eye opening: Spontaneous [place] coma scale verbal response: Orientated [place] coma scale motor response: Obey commands [place] coma scale total score: 15 Course <LILIBETH Zhao - Last Filed: 04/28/20 17:52> Orders Ordered: ED Orders 04/28/20 14:13 Amylase Stat Complete Blood Count AUTO DIFF Stat Comprehensive Metabolic Panel Stat Lipase Stat 04/28/20 14:36 US pelvic complete Stat Discontinued Medications Hydrocodone Bitart/Acetaminophen (Tad 5/325) 1 tab PO NOW ONE Stop: 04/28/20 15:55 Last Admin: 04/28/20 16:16 Dose: 1 tab Documented by: BUTCH Sodium Chloride (Normal Saline 0.9%) 1,000 mls @ 1,000 mls/hr IV BOLUS ONE Stop: 04/28/20 14:56 Last Infusion: 04/28/20 16:17 Dose: 0 mls/hr Documented by: Admin: 04/28/20 14:14 Dose: 1,000 mls/hr Documented by: VI Morphine Sulfate (Morphine) 4 mg IV NOW ONE Stop: 04/28/20 14:43 Last Admin: 04/28/20 14:56 Dose: 4 mg Documented by: VI Ondansetron HCl (Zofran) 4 mg IV NOW ONE Stop: 04/28/20 13:58 Last Admin: 04/28/20 14:57 Dose: 4 mg Documented by: VI Ondansetron HCl (Zofran) 4 mg IV NOW ONE Stop: 04/28/20 15:55 Last Admin: 04/28/20 16:16 Dose: 4 mg Documented by: BUTCH Vital Signs Vital signs: Vital Signs - 8 hr 04/28/20 13:22 04/28/20 14:05 04/28/20 14:30 Temperature 98.3 F Pulse Rate 89 84 75 Respiratory Rate 16 Blood Pressure 121/75 Pulse Oximetry 99 98 99 04/28/20 15:00 04/28/20 15:05 04/28/20 15:30 Temperature Pulse Rate 74 82 90 Respiratory Rate 16 Blood Pressure 106/56 L Pulse Oximetry 100 99 92 04/28/20 16:00 04/28/20 16:36 04/28/20 16:46 Temperature Pulse Rate 72 72 70 Respiratory Rate 14 16 Blood Pressure 99/56 L 112/65 Pulse Oximetry 98 100 98 <Ronald Campbell MD - Last Filed: 04/28/20 17:59> Orders Ordered: ED Orders 04/28/20 14:13 Amylase Stat Complete Blood Count AUTO DIFF Stat Comprehensive Metabolic Panel Stat Lipase Stat 04/28/20 14:36 US pelvic complete Stat Discontinued Medications Hydrocodone Bitart/Acetaminophen (Tad 5/325) 1 tab PO NOW ONE Stop: 04/28/20 15:55 Last Admin: 04/28/20 16:16 Dose: 1 tab Documented by: BUTCH Sodium Chloride (Normal Saline 0.9%) 1,000 mls @ 1,000 mls/hr IV BOLUS ONE Stop: 04/28/20 14:56 Last Infusion: 04/28/20 16:17 Dose: 0 mls/hr Documented by: Admin: 04/28/20 14:14 Dose: 1,000 mls/hr Documented by: VI Morphine Sulfate (Morphine) 4 mg IV NOW ONE Stop: 04/28/20 14:43 Last Admin: 04/28/20 14:56 Dose: 4 mg Documented by: VI Ondansetron HCl (Zofran) 4 mg IV NOW ONE Stop: 04/28/20 13:58 Last Admin: 04/28/20 14:57 Dose: 4 mg Documented by: VI Ondansetron HCl (Zofran) 4 mg IV NOW ONE Stop: 04/28/20 15:55 Last Admin: 04/28/20 16:16 Dose: 4 mg Documented by: BUTCH Vital Signs Vital signs: Vital Signs - 8 hr 04/28/20 13:22 04/28/20 14:05 04/28/20 14:30 Temperature 98.3 F Pulse Rate 89 84 75 Respiratory Rate 16 Blood Pressure 121/75 Pulse Oximetry 99 98 99 04/28/20 15:00 04/28/20 15:05 04/28/20 15:30 Temperature Pulse Rate 74 82 90 Respiratory Rate 16 Blood Pressure 106/56 L Pulse Oximetry 100 99 92 04/28/20 16:00 04/28/20 16:36 04/28/20 16:46 Temperature Pulse Rate 72 72 70 Respiratory Rate 14 16 Blood Pressure 99/56 L 112/65 Pulse Oximetry 98 100 98 MDM - Female Genitourinary <Ellen Guthrie, REFUGIO- - Last Filed: 04/28/20 17:52> Lab Data Result diagrams: 04/28/20 14:13 04/28/20 14:13 Labs: Lab Results 04/28/20 04/28/20 Range/Units 14:13 14:13 WBC 9.6 (4.5-11.0) X10^3/uL RBC 4.71 (4.0-5.2) X10^6/uL Hgb 12.8 (12.0-16.0) g/dL Hct 38.4 (36-46) % MCV 81.6 (80-100) fL MCH 27.2 (26-34) PG MCHC 33.3 (30-36) % RDW 14.5 (11.6-14.8) % Plt Count 282 (150-400) X10^3/uL Neut % (Auto) 76.4 H (50-75) % Lymph % (Auto) 17.0 L (25-40) % [place] % (Auto) 5.7 (3-14) % Eos % (Auto) 0.6 L (2-4) % Baso % (Auto) 0.3 (0-2) % Neut # (Auto) 7300 H (2863-7629) /uL Lymph # (Auto) 1600 (9996-2689) /uL [place] # (Auto) 500 (0-900) /uL Eos # (Auto) 100 (0-450) /uL Baso # (Auto) 0 (0-100) /uL Sodium 137 (137-145) mmol/L Potassium 3.9 (3.4-5.1) mmol/L Chloride 103 (98-107) mmol/L Carbon Dioxide 26 (22-32) mmol/L BUN 9 (7-17) mg/dL Creatinine 0.59 (0.52-1.04) mg/dL Estimated GFR > 60.0 (>60) mL/min BUN/Creatinine Ratio 15.3 (6-22) Glucose 98 (70-100) mg/dL Calcium 9.4 (8.4-10.2) mg/dL Total Bilirubin 0.4 (0.2-1.3) mg/dL AST 27 (14-36) IU/L ALT 22 (<35) IU/L Alkaline Phosphatase 62 (38-126) U/L Total Protein 7.9 (6.3-8.2) g/dL Albumin 4.5 (3.5-5.0) g/dL Globulin 3.4 (1.7-4.1) g/dL Albumin/Globulin Ratio 1.3 (1.0-2.8) Amylase 63 (30-110) U/L Lipase 65 (23-300) U/L Point of Care Testing Test Results Negative Urine Dip Bedside Urine Glucose Negative Bedside Urine Bilirubin - Negative Bedside Urine Ketone - Negative Urine Specific [place] 1.005 Bedside Urine Occult Blood - Negative Bedside Urine pH 7 Bedside Urine Protein - Negative Bedside Urine Urobilinogen - Negative Bedside Urine Nitrite - Negative Bedside Urine Leukocytes - Negative Esterase Imaging Data US - SECURITY ARCHITECT: Radiologist's Impression: [address] [place] [id number] Ultrasound Report Signed Patient: Indio Encarnacion [facility]#: [id number] : 1990Acct:[id number] Age/Sex: 29 / FDate of Service: 04/28/20 Loc: ED Accession Number: [id number] Procedure: US pelvic complete Ordering Provider: Ellen Guthrie CONFERENCE ASSISTANT-BC PROCEDURE: US PELVIC COMPLETE INDICATIONS: PAIN TECHNIQUE: Real-time scanning was performed of the pelvic organs, with image documentation. Additional endovaginal scanning was necessary due to incomplete visualization of the adnexal and endometrial structures by transabdominal scanning. COMPARISON: None. FINDINGS: Transabdominal scanning: Limited scanning through the kidneys shows no hydronephrosis. No pathologic free abdominal or pelvic fluid. Endovaginal scanning: Uterus: Uterus is normal in size at 6.9 x 4.3 x 5.4 cm. The endometrium measures 8 mm in combined thickness. Ovaries: Right ovary measures 6.0 x 2.9 x 2.8 cm. It contains a probable hemorrhagic cyst measuring 2.6 x 1.8 x 2.3 cm. There is normal intraovarian flow in the right ovary. Left ovary is surgically absent. No abnormal adnexal masses or fluid collections. IMPRESSION: 1. Probable hemorrhagic cyst of the right ovary measuring 2.6 cm in maximum diameter. 2. Otherwise unremarkable pelvic ultrasound. Dictated by: Ricardo Waldrop M.D. on 04/28/2020 at 14:37 Approved by: Ricardo Waldrop M.D. on 04/28/2020 at 14:39 MDM Narrative Medical decision making narrative: The patient is a 29-year-old female who presents with a chief complaint of diffuse suprapubic tenderness. She is afebrile, nontoxic appearing, has no leukocytosis labs. We considered STIs, though she denies any possibility of STIs and does not have any vaginal discharge. Urinalysis shows no indication UTI. She does have an ovarian cyst that is 2.6 cm complex and hemorrhagic. This could easily be causing her pain. We considered PID, but the patient not to be the risk as she has no vaginal discharge, no STI history, no leukocytosis. She is nontoxic and well appearing. She would like to hold off on a pelvic exam for now, but states understanding of return precautions and that she needs follow-up care. We discussed strict return precautions of abdominal pain with fever, inability keep down fluids, any acute concerns. We discussed the possibility of PID risking fertility, and she is okay with that she does not have any more children at showed has 3. I discussed at length the importance of following up with primary care provider, possible reimaging etcetera. Patient has no questions or concerns upon discharge and states understanding of return precautions as well as follow-up care. <Ronald Campbell MD - Last Filed: 04/28/20 17:59> Lab Data Labs: Lab Results 04/28/20 04/28/20 Range/Units 14:13 14:13 WBC 9.6 (4.5-11.0) X10^3/uL RBC 4.71 (4.0-5.2) X10^6/uL Hgb 12.8 (12.0-16.0) g/dL Hct 38.4 (36-46) % MCV 81.6 (80-100) fL MCH 27.2 (26-34) PG MCHC 33.3 (30-36) % RDW 14.5 (11.6-14.8) % Plt Count 282 (150-400) X10^3/uL Neut % (Auto) 76.4 H (50-75) % Lymph % (Auto) 17.0 L (25-40) % [place] % (Auto) 5.7 (3-14) % Eos % (Auto) 0.6 L (2-4) % Baso % (Auto) 0.3 (0-2) % Neut # (Auto) 7300 H (3417-9226) /uL Lymph # (Auto) 1600 (6197-7399) /uL [place] # (Auto) 500 (0-900) /uL Eos # (Auto) 100 (0-450) /uL Baso # (Auto) 0 (0-100) /uL Sodium 137 (137-145) mmol/L Potassium 3.9 (3.4-5.1) mmol/L Chloride 103 (98-107) mmol/L Carbon Dioxide 26 (22-32) mmol/L BUN 9 (7-17) mg/dL Creatinine 0.59 (0.52-1.04) mg/dL Estimated GFR > 60.0 (>60) mL/min BUN/Creatinine Ratio 15.3 (6-22) Glucose 98 (70-100) mg/dL Calcium 9.4 (8.4-10.2) mg/dL Total Bilirubin 0.4 (0.2-1.3) mg/dL AST 27 (14-36) IU/L ALT 22 (<35) IU/L Alkaline Phosphatase 62 (38-126) U/L Total Protein 7.9 (6.3-8.2) g/dL Albumin 4.5 (3.5-5.0) g/dL Globulin 3.4 (1.7-4.1) g/dL Albumin/Globulin Ratio 1.3 (1.0-2.8) Amylase 63 (30-110) U/L Lipase 65 (23-300) U/L Point of Care Testing Test Results Negative Urine Dip Bedside Urine Glucose Negative Bedside Urine Bilirubin - Negative Bedside Urine Ketone - Negative Urine Specific [place] 1.005 Bedside Urine Occult Blood - Negative Bedside Urine pH 7 Bedside Urine Protein - Negative Bedside Urine Urobilinogen - Negative Bedside Urine Nitrite - Negative Bedside Urine Leukocytes - Negative Esterase Discharge Plan Departure Patient Disposition: Home Clinical Impression: Ovarian cyst Qualifiers: Laterality: right Qualified Code(s): N83.201 - Unspecified ovarian cyst, right side Discharge Date/Time: 04/28/20 16:47 Instructions: DI for Ovarian Cyst Activity Restrictions/Additional Instructions: Thank you for trusting us with your care today. As I discussed, your ultrasound shows a complicated right ovarian cyst. Please follow-up with primary care provider in the next few days. You will probably need further imaging and follow-up. Please come back to the emergency department for any acute concerns. As I discussed given your cyst your at higher risk of ovarian torsion. Please do not hesitate to come back to the emergency department for any acute concerns. I sent 2 prescriptions to [facility]. I have given you a prescription of Toradol. This is an NSAID. Do not combine it with other NSAIDs such as Aleve or ibuprofen. I suggest taking it with some food, as it can irritate your stomach. I have given you a prescription of a narcotic for pain. Be aware that this can be constipating and sedating. I encouraged taking with a stool softener, pushing fluids and fiber. Do not take and drive, operate heavy machinery, etc. Do not combine it with any other sedating substances such as alcohol. The combination of narcotics and alcohol and/or other sedatives can be lethal. Prescriptions: New ondansetron 4 mg tablet,disintegrating 4 mg PO Q6H PRN (Reason: nausea and vomiting) Qty: 10 RF: 0 ketorolac 10 mg tablet 10 mg PO TID Qty: 15 RF: 0 hydrocodone-acetaminophen [Tad] 5-325 mg tablet 1 tab PO Q4-6H PRN (Reason: pain) Qty: 7 RF: 0 No Action sertraline [Zoloft] 50 mg tablet 50 mg PO QDAY Qty: 90 RF: 3 methimazole 5 mg tablet 15 mg PO TID RF: 0 calcium carbonate [Tums] 300 mg (750 mg) Tablet,Chewable 300 mg PO PRN PRN (Reason: reflux) RF: 0 Referrals: [facility] [Outside]
== END 2020-04-28 16:47 | disposition home or self-care (01) ==
PROVIDERS: Emergency Provider Nurse Practitioner Family
DX: N83.201 Unspecified ovarian cyst, right side (principal); R11.0 Nausea; R10.2 Pelvic and perineal pain
CPT/HCPCS: 36415; 76830; 76856; 80053; 81003; 81025; 82150; 83690; 85025; 96361; 96374; 96375; 96376; 99284; 99285; J2270; J2405

== ENCOUNTER → 2020-07-15 12:31 | Outpatient (CLI) | payer SELFPAY ==
[2020-07-15 14:36] LABS: Free T4, Direct Thyroxine 1.38 ng/dL (0.78-2.19)
[2020-07-15 14:53] LABS: Thyroid Stimulating Hormone < 0.015 uIU/mL (0.47-4.68)
== END ==
PROVIDERS: Referring Provider Internal Medicine; Visit Provider Internal Medicine
DX: E05.00 Thyrotoxicosis with diffuse goiter without thyrotoxic crisis or storm (principal); R00.0 Tachycardia, unspecified
CPT/HCPCS: 36415; 84439; 84443

== ENCOUNTER 2020-07-18 00:05 | Emergency (ER) | payer SELFPAY ==
[2020-07-18] VITALS (10 sets, daily range): BP systolic 111–128; BP diastolic 63–75; PULSE 83–109; RESP 11–23; TEMP 36.9; O2SAT 92–100; BMI 45.5
--- NOTE | 2020-07-18 00:12 | DI.RAD.S_ITS ---
PROCEDURE: XR CHEST 1V INDICATIONS: chest pain TECHNIQUE: One view of the chest was acquired. COMPARISON: None. FINDINGS: Surgical changes and devices: None. Lungs and pleura: Lungs are clear. No pleural effusions or pneumothorax. Mediastinum: Mediastinal contours appear normal. Heart size is normal. Bones and chest wall: No suspicious bony lesions. Overlying soft tissues appear unremarkable. IMPRESSION: No acute cardiopulmonary disease process. Dictated by: Aggie Orlando MD, PhD on 07/18/2020 at 8:59 Approved by: Aggie Orlando MD, PhD on 07/18/2020 at 9:00
--- NOTE | 2020-07-18 00:23 | ED_ITS ---
HPI - Chest Pain General Chief Complaint: Chest Pain Stated Complaint: shaking thinks heart attack left arm pain Time Seen by Provider: 07/18/20 00:08 Source: patient Mode of arrival: Ambulatory Limitations: no limitations History of Present Illness HPI narrative: Patient here for left arm discomfort that is relieved with movement and stretching and ?popping? her back. Pain starts in the back and goes down her left arm. Denies any pain at this time. Ibuprofen also helps the discomfort. Patient states she has had problems with joints in the past and has seen a chiropractor in the past. There is 1 spot midline that is somewhat persistent at the level of approximately T2-T3. Feels like a pinched nerve that is nagging but not severe, dull like ache. No chest pain. Patient had a lot of tremors and shaking prior to arrival and continues now but has improved. Patient has history of Graves disease. Was on metoprolol and methimazole last year being followed by boat carpenter mechanic in [place]. She weaned herself off of it and he was unaware of it. Patient's symptoms started with palpitations again, in the past week, similar to her palpitations with Graves disease. She contacted his office and represcribed her metoprolol as well as methimazole. Started metoprolol 3 days ago, starting methimazole tomorrow because boat carpenter mechanic was waiting for results of her laboratory studies. Blood work was done and she states her TSH was undetectable. Patient states has been under new stress. Her 3 children in the past 2 weeks on line school learning which has been stressful. Diagnosed 2 years ago with Graves disease and had a resting heart rate of 115 at the time with sweating. She states symptoms are not as severe at this time as back 2 years ago. No no no and denies exertional chest pain or dyspnea. She states her heart rate does go up to 120s or 130s when walking up steps carrying a load. Which might be laundry or 1 of the children. But denies any chest pain with this. And no dyspnea. No recent illness cough cold congestion fever chills. No recent exertional chest pain or dyspnea. No recent surgeries or immobilizations. No personal or family history of blood clots in legs or lungs. She states her father of heart related event, uncertain if drug related. Denies denies any fever nausea vomiting diarrhea or any confusion or hallucinations. Related Data Home Medications Medication Instructions Recorded Confirmed methimazole 5 mg tablet 15 mg PO TID tab 08/10/18 02/20/19 calcium carbonate [Tums] 300 mg PO PRN PRN 02/02/19 02/20/19 Previous Rx's Medication Instructions Recorded sertraline [Zoloft] 50 mg PO QDAY #90 tab 04/24/19 hydrocodone-acetaminophen [[place]] 1 tab PO Q4-6H PRN #7 tab 04/28/20 ketorolac 10 mg PO TID #15 tab 04/28/20 ondansetron 4 mg PO Q6H PRN #10 tab 04/28/20 Allergies Allergy/AdvReac Type Severity Reaction Status Date / Time oxycodone [From Percocet] AdvReac Intermediate Vomiting Verified 02/20/19 14:35 Review of Systems Review of Systems Narrative: GENERAL: Denies chills, fatigue, malaise, fever, sweats. HEENT: Denies sinus pain, ear pain, sore throat, difficulty swallowing, dizzine ss. RESPIRATORY: Denies dyspnea, cough, wheezing, hemoptysis, sputum. CARDIOVASCULAR: Denies chest pain, complains of palpitations, denies orthopnea, edema, GASTROINTESTINAL: Denies nausea, vomiting, abdominal pain, diarrhea, constipation, melena. : Denies dysuria, frequency, incontinence, hematuria, urinary retention. MUSCULOSKELETAL: denies weakness, joint pain, or bony pain SKIN: Denies rash, skin lesions NEUROLOGIC: Denies weakness, headache, numbness, change in speech, confusion, seizures, incoordination. PSYCHIATRIC: Feels anxious ROS Unobtainable: All systems reviewed & are unremarkable except as noted in HPI and below Patient History Medical History Anemia (Chronic ~2013) Anxiety and depression (Acute) Chicken pox (Resolved ~1999) Chronic back pain (Chronic ~2006) Graves' disease (Acute) Headache (Chronic ~2006) Migraines (Chronic ~2006) Ovarian cyst (Chronic ~2014) Sinus infection (Acute ~07/2018) Surgical History Status post laparoscopic cholecystectomy (~2013) Family History Grandmother Age: 78 Hypertension High cholesterol Mental health problem Stroke Diabetes mellitus Kidney failure Mother Age: 48 Depression Colitis Arthritis Smoker Early menopause Grandfather No problems noted. Social History household members: spouse and children Smoking Status: Never smoker alcohol intake: current Smoking Status: Never smoker alcohol intake frequency: holidays/special occasions only Substance Use Type: does not use Exam Narrative Exam Narrative: GENERAL: patient appears stated age. Well-nourished, well- developed patient, in no distress, not toxic HEAD: Atraumatic. Normocephalic. EYES: Pupils equal round and reactive. Extraocular motions intact. No scleral icterus. No injection or drainage. ENT: Nose without bleeding, purulent drainage. Throat without erythema, tonsillar hypertrophy or exudate. Airway patent. NECK: Trachea midline. Non tender CARDIOVASCULAR: Tachycardia but Regular rate and rhythm without murmurs, gallops, or rubs. RESPIRATORY: Clear to auscultation. Breath sounds equal bilaterally. No wheezes, rales, or rhonchi. GASTROINTESTINAL: Abdomen soft, non-tender, nondistended. EXTREMITIES: No edema or joint tenderness. no pain with rom of left arm/shoulder...denies any left arm discomfort at this time BACK: reproducible tenderness at T1-T2 midline...no cva tenderness. no scapular tenderness NEURO: AOx4. strong left transformer inspector with light touch intact to fingers and thumb SKIN: No rash or erythema of visible areas PSYCH: Feels anxious Initial Vital Signs Initial Vital Signs: Vital Signs Pulse Rate 109 H 07/18/20 00:15 Respiratory Rate 12 07/18/20 00:15 Blood Pressure 119/67 07/18/20 00:15 Pulse Oximetry 99 07/18/20 00:15 Scores HEART Score Heart Score history: Slightly Suspicious Heart Score EKG: Normal Heart Score Age: < 45 years old Heart Score risk factors: 1-2 risk factors Heart Score troponin: < or = to normal limit Heart Score Total: 1 Course Course Course Narrative: Time 5:20 a.m.. Through the course the ER spoke with patient about observation here and 2nd set of enzymes/troponin. She agreed. During her stay she has rested comfortably. Heart rate in mid 80s while resting. Never had chest pain. At this time no indication to consult Cardiology has never had chest pain. Palpitations is common for her Graves disease. She does have follow-up with her boat carpenter mechanic. She will start her methimazole today. Orders Ordered: ED Orders 07/18/20 00:12 XR chest 1V Stat EKG-12 Lead Stat 07/18/20 00:18 Complete Blood Count AUTO DIFF Stat Comprehensive Metabolic Panel Stat D Dimer Stat Free T3, Triiodothyronine Free Stat Free T4, Direct Thyroxine Stat T4 Total Thyroxine Stat Thyroid Stimulating Hormone Stat Troponin & CK Cardiac Panel Stat 07/18/20 01:28 Urine Drug Screen, Rapid Stat 07/18/20 04:25 Trop I [Troponin I] Stat Discontinued Medications Ketorolac Tromethamine (Toradol) 15 mg IV NOW ONE Stop: 07/18/20 01:44 Last Admin: 07/18/20 02:03 Dose: 15 mg Documented by: BUTCH Reevaluation(s) Reevaluation #1: Patient heart rate 87, resting comfortably. Had relief of upper central back pain after Toradol. Feeling much better. Still does not have left arm discomfort. No palpitations. Feeling much more relaxed Time: 02:31 Reevaluation #2: Patient heart rate 91. Resting comfortably. No complaints. Time: 03:34 Reevaluation #3: Awoke patient to go over results. Second set of troponin negative. Heart rate 91. Patient does not want a stress test. She is afraid that it will raise her heart rate. She states she does have the same since of a rushing feeling in her body and feels shaky during discussion about doing a stress test. Feels anxious. Same symptoms she felt prior to arrival. At this time she feels is more anxiety related as it is reproducible during discussion about doing a stress test. She desires to start her methimazole today and see if that will help with the symptoms and her thyroid. She does not want be admitted or get a stress test Time: 05:18 Vital Signs Vital signs: Vital Signs - 8 hr 07/18/20 00:15 07/18/20 00:17 07/18/20 00:30 Temperature 98.4 F Pulse Rate 109 H 107 H 103 H Respiratory Rate 12 17 11 L Blood Pressure 119/67 119/67 128/64 Pulse Oximetry 99 100 100 07/18/20 01:00 07/18/20 01:30 07/18/20 02:00 Temperature Pulse Rate 100 H 101 H 95 H Respiratory Rate 15 23 22 Blood Pressure 121/66 117/67 Pulse Oximetry 100 98 97 07/18/20 02:30 07/18/20 03:00 07/18/20 03:12 Temperature Pulse Rate 83 83 104 H Respiratory Rate 21 22 19 Blood Pressure 111/63 Pulse Oximetry 92 92 94 07/18/20 05:33 Temperature Pulse Rate 92 H Respiratory Rate 16 Blood Pressure 121/75 Pulse Oximetry 100 MDM - Chest Pain Differential Diagnosis Differential diagnosis: Likely atypical chest pain, chest pain and other (Pulmonary embolism/anxiety) Lab Data Attestation: I reviewed the patient's lab results. Result diagrams: 07/18/20 00:18 07/18/20 00:18 Labs: Lab Results 07/18/20 07/18/20 07/18/20 Range/Units 00:18 00:18 00:18 WBC 8.9 (4.5-11.0) X10^3/uL RBC 4.45 (4.0-5.2) X10^6/uL Hgb 12.1 (12.0-16.0) g/dL Hct 36.2 (36-46) % MCV 81.4 (80-100) fL MCH 27.1 (26-34) PG MCHC 33.4 (30-36) % RDW 13.1 (11.6-14.8) % Plt Count 308 (150-400) X10^3/uL Neut % (Auto) 58.0 (50-75) % Lymph % (Auto) 32.9 (25-40) % [place] % (Auto) 7.1 (3-14) % Eos % (Auto) 1.0 L (2-4) % Baso % (Auto) 1.0 (0-2) % Neut # (Auto) 5200 (5371-4891) /uL Lymph # (Auto) 2900 (7771-8564) /uL [place] # (Auto) 600 (0-900) /uL Eos # (Auto) 100 (0-450) /uL Baso # (Auto) 100 (0-100) /uL D-Dimer 209 (<230) ng/mL Sodium 136 L (137-145) mmol/L Potassium 3.5 (3.4-5.1) mmol/L Chloride 101 (98-107) mmol/L Carbon Dioxide 27 (22-32) mmol/L BUN 16 (7-17) mg/dL Creatinine 0.69 (0.52-1.04) mg/dL Estimated GFR > 60.0 (>60) mL/min BUN/Creatinine Ratio 23.2 H (6-22) Glucose 110 H (70-100) mg/dL Calcium 8.9 (8.4-10.2) mg/dL Total Bilirubin 0.4 (0.2-1.3) mg/dL AST 30 (14-36) IU/L ALT 29 (<35) IU/L Alkaline Phosphatase 55 (38-126) U/L Total Creatine Kinase 57 (30-135) U/L CK-MB (CK-2) TNP CK-MB (CK-2) Rel Index TNP Troponin I < 0.012 (0.01-0.034) ng/mL Total Protein 7.7 (6.3-8.2) g/dL Albumin 4.1 (3.5-5.0) g/dL Globulin 3.6 (1.7-4.1) g/dL Albumin/Globulin Ratio 1.1 (1.0-2.8) TSH (0.47-4.68) uIU/mL Free T4 (0.78-2.19) ng/dL Thyroxine (T4) (5.5-11.0) ug/dL Free T3 (2.77-5.27) pg/mL U Opiates 300ng/mL cut (Negative) Ur Oxycodone Screen (Negative) Urine Methadone Screen (Negative) Ur Barbiturates Screen (Negative) U Tricyclic Antidepress (Negative) Ur Phencyclidine Scrn (Negative) Ur Amphetamines Screen (Negative) U Methamphetamines Scrn (Negative) Ur MDMA Scrn (Ecstasy) (Negative) U Benzodiazepines Scrn (Negative) Urine Cocaine Screen (Negative) U Marijuana (THC) Screen (Negative) 07/18/20 07/18/20 07/18/20 Range/Units 00:18 00:18 01:28 WBC (4.5-11.0) X10^3/uL RBC (4.0-5.2) X10^6/uL Hgb (12.0-16.0) g/dL Hct (36-46) % MCV (80-100) fL MCH (26-34) PG MCHC (30-36) % RDW (11.6-14.8) % Plt Count (150-400) X10^3/uL Neut % (Auto) (50-75) % Lymph % (Auto) (25-40) % [place] % (Auto) (3-14) % Eos % (Auto) (2-4) % Baso % (Auto) (0-2) % Neut # (Auto) (0298-8334) /uL Lymph # (Auto) (4055-1628) /uL [place] # (Auto) (0-900) /uL Eos # (Auto) (0-450) /uL Baso # (Auto) (0-100) /uL D-Dimer (<230) ng/mL Sodium (137-145) mmol/L Potassium (3.4-5.1) mmol/L Chloride (98-107) mmol/L Carbon Dioxide (22-32) mmol/L BUN (7-17) mg/dL Creatinine (0.52-1.04) mg/dL Estimated GFR (>60) mL/min BUN/Creatinine Ratio (6-22) Glucose (70-100) mg/dL Calcium (8.4-10.2) mg/dL Total Bilirubin (0.2-1.3) mg/dL AST (14-36) IU/L ALT (<35) IU/L Alkaline Phosphatase (38-126) U/L Total Creatine Kinase (30-135) U/L CK-MB (CK-2) CK-MB (CK-2) Rel Index Troponin I (0.01-0.034) ng/mL Total Protein (6.3-8.2) g/dL Albumin (3.5-5.0) g/dL Globulin (1.7-4.1) g/dL Albumin/Globulin Ratio (1.0-2.8) TSH < 0.015 L (0.47-4.68) uIU/mL Free T4 1.18 (0.78-2.19) ng/dL Thyroxine (T4) 10.30 (5.5-11.0) ug/dL Free T3 4.10 (2.77-5.27) pg/mL U Opiates 300ng/mL cut Negative (Negative) Ur Oxycodone Screen Negative (Negative) Urine Methadone Screen Negative (Negative) Ur Barbiturates Screen Negative (Negative) U Tricyclic Antidepress Negative (Negative) Ur Phencyclidine Scrn Negative (Negative) Ur Amphetamines Screen Negative (Negative) U Methamphetamines Scrn Negative (Negative) Ur MDMA Scrn (Ecstasy) Negative (Negative) U Benzodiazepines Scrn Negative (Negative) Urine Cocaine Screen Negative (Negative) U Marijuana (THC) Screen Negative (Negative) 07/18/20 Range/Units 04:25 WBC (4.5-11.0) X10^3/uL RBC (4.0-5.2) X10^6/uL Hgb (12.0-16.0) g/dL Hct (36-46) % MCV (80-100) fL MCH (26-34) PG MCHC (30-36) % RDW (11.6-14.8) % Plt Count (150-400) X10^3/uL Neut % (Auto) (50-75) % Lymph % (Auto) (25-40) % [place] % (Auto) (3-14) % Eos % (Auto) (2-4) % Baso % (Auto) (0-2) % Neut # (Auto) (5948-6297) /uL Lymph # (Auto) (5527-6851) /uL [place] # (Auto) (0-900) /uL Eos # (Auto) (0-450) /uL Baso # (Auto) (0-100) /uL D-Dimer (<230) ng/mL Sodium (137-145) mmol/L Potassium (3.4-5.1) mmol/L Chloride (98-107) mmol/L Carbon Dioxide (22-32) mmol/L BUN (7-17) mg/dL Creatinine (0.52-1.04) mg/dL Estimated GFR (>60) mL/min BUN/Creatinine Ratio (6-22) Glucose (70-100) mg/dL Calcium (8.4-10.2) mg/dL Total Bilirubin (0.2-1.3) mg/dL AST (14-36) IU/L ALT (<35) IU/L Alkaline Phosphatase (38-126) U/L Total Creatine Kinase (30-135) U/L CK-MB (CK-2) CK-MB (CK-2) Rel Index Troponin I < 0.012 (0.01-0.034) ng/mL Total Protein (6.3-8.2) g/dL Albumin (3.5-5.0) g/dL Globulin (1.7-4.1) g/dL Albumin/Globulin Ratio (1.0-2.8) TSH (0.47-4.68) uIU/mL Free T4 (0.78-2.19) ng/dL Thyroxine (T4) (5.5-11.0) ug/dL Free T3 (2.77-5.27) pg/mL U Opiates 300ng/mL cut (Negative) Ur Oxycodone Screen (Negative) Urine Methadone Screen (Negative) Ur Barbiturates Screen (Negative) U Tricyclic Antidepress (Negative) Ur Phencyclidine Scrn (Negative) Ur Amphetamines Screen (Negative) U Methamphetamines Scrn (Negative) Ur MDMA Scrn (Ecstasy) (Negative) U Benzodiazepines Scrn (Negative) Urine Cocaine Screen (Negative) U Marijuana (THC) Screen (Negative) Point of Care Testing Test Results Negative Imaging Data Chest x-ray: Attestation: I personally reviewed and interpreted this imaging study as follows: My Impression: No acute process ECG Data Attestation: I personally reviewed and interpreted this ECG as follows: Interpretation: Sinus tachycardia otherwise normal EKG. Ventricular rate 112 MDM Narrative Medical decision making narrative: Tachycardia not abnormal for patient. History of the same with Graves disease. Patient has been off her medications for almost a year. Just restarted them 4 days ago. Has not started methimazole, getting ready to start tomorrow. Low heart score. Appropriate for repeat heart enzymes here for rule out. Her back pain is likely disc related. As it was relieved by Toradol. Discharge Plan Departure Patient Disposition: Home Clinical Impression: Anxiety, Palpitations Back pain Qualifiers: Back pain location: back pain in unspecified location Chronicity: chronic Back pain laterality: midline Qualified Code(s): M54.9 - Dorsalgia, unspecified Discharge Date/Time: 07/18/20 05:30 Instructions: DI for Graves Disease, DI for Anxiety -- Adult, DI for Palpitations, DI for Thoracic Back Pain Activity Restrictions/Additional Instructions: See your boat carpenter mechanic for continued maintenance of year thyroid medications. Started on methimazole as planned today. Called provided clinic number to attain family physician for recheck of anxiety and management. Return if worse if any questions or concerns or any chest pain Prescriptions: No Action sertraline [Zoloft] 50 mg tablet 50 mg PO QDAY Qty: 90 RF: 3 methimazole 5 mg tablet 15 mg PO TID RF: 0 calcium carbonate [Tums] 300 mg (750 mg) Tablet,Chewable 300 mg PO PRN PRN (Reason: reflux) RF: 0 ondansetron 4 mg tablet,disintegrating 4 mg PO Q6H PRN (Reason: nausea and vomiting) Qty: 10 RF: 0 ketorolac 10 mg tablet 10 mg PO TID Qty: 15 RF: 0 hydrocodone-acetaminophen [[place]] 5-325 mg tablet 1 tab PO Q4-6H PRN (Reason: pain) Qty: 7 RF: 0 Referrals: [facility] [Outside]
[2020-07-18 00:25] LABS: Add Manual Diff / Slide Review NO; Basophils Absolute Auto 100 /uL (0-100); Eosinophils Absolute Auto 100 /uL (0-450); Hematocrit 36.2 % (36-46); Hemoglobin 12.1 g/dL (12.0-16.0); Lymphocytes Absolute Auto 2900 /uL (1100-4500); Lymphocytes Percent Auto 32.9 % (25-40); Mean Corpuscular HGB Conc 33.4 % (30-36); Mean Corpuscular Hemoglobin 27.1 PG (26-34); Mean Corpuscular Volume 81.4 fL (80-100); Monocytes Absolute Auto 600 /uL (0-900); Monocytes Percent Auto 7.1 % (3-14); Neutrophils Absolute Auto 5200 /uL (1500-7000); Platelet Count 308 X10^3/uL (150-400); Red Blood Cell Count 4.45 X10^6/uL (4.0-5.2); Red Cell Distribution Width 13.1 % (11.6-14.8); White Blood Cell Count 8.9 X10^3/uL (4.5-11.0)
[2020-07-18 00:40] LABS: Alanine Aminotransferase 29 IU/L (<35); Albumin 4.1 g/dL (3.5-5.0); Albumin Globulin Ratio 1.1 (1.0-2.8); Alkaline Phosphatase 55 U/L (38-126); Aspartate Aminotransferase 30 IU/L (14-36); BUN Creatinine Ratio 23.2 (6-22); Bilirubin Total 0.4 mg/dL (0.2-1.3); Blood Urea Nitrogen 16 mg/dL (7-17); Calcium 8.9 mg/dL (8.4-10.2); Carbon Dioxide 27 mmol/L (22-32); Chloride 101 mmol/L (98-107); Creatine Kinase 57 U/L (30-135); Estimated Glomerular Filt Rate > 60.0 mL/min (>60); Globulin 3.6 g/dL (1.7-4.1); Glucose 110 mg/dL (70-100); HEMOLYSIS < 15 (0-50); Potassium 3.5 mmol/L (3.4-5.1); Sodium 136 mmol/L (137-145); Total Protein 7.7 g/dL (6.3-8.2)
[2020-07-18 00:41] LABS: D Dimer 209 ng/mL (<230)
[2020-07-18 00:52] LABS: Troponin I < 0.012 ng/mL (0.01-0.034)
[2020-07-18 01:20] LABS: Free T4, Direct Thyroxine 1.18 ng/dL (0.78-2.19)
[2020-07-18 01:25] LABS: Thyroid Stimulating Hormone < 0.015 uIU/mL (0.47-4.68)
[2020-07-18 01:41] LABS: UR Morphine/Opiate cutoff 300 Negative (Negative); Ur Creatinine Normal (Normal); Ur Specific Gravity Normal (Normal); Urine Amphetamines Negative (Negative); Urine Barbiturates Negative (Negative); Urine Benzodiazepines Negative (Negative); Urine Cocaine Negative (Negative); Urine MDMA Negative (Negative); Urine Methadone Negative (Negative); Urine Methamphetamines Negative (Negative); Urine Oxycodone Negative (Negative); Urine Phencyclidine Negative (Negative); Urine Tetrahydrocannabinol Negative (Negative); Urine Tricyclic Antidepressant Negative (Negative); Urine pH Normal (Normal)
[2020-07-18] MEDS: KETOROLAC 60 MG/2 ML VIAL 15 MG IV (02:03)
[2020-07-18 04:57] LABS: Troponin I < 0.012 ng/mL (0.01-0.034)
== END 2020-07-18 05:30 | disposition home or self-care (01) ==
PROVIDERS: Emergency Provider Emergency Medicine
DX: R00.2 Palpitations (principal); E05.00 Thyrotoxicosis with diffuse goiter without thyrotoxic crisis or storm; F41.9 Anxiety disorder, unspecified; M54.6 Pain in thoracic spine
CPT/HCPCS: 36415; 71045; 80053; 80305; 81025; 82550; 84436; 84439; 84443; 84481; 84484; 85025; 85379; 93005; 93010; 96374; 99284; J1885

== ENCOUNTER 2020-07-18 07:16 | Emergency (ER) | payer SELFPAY ==
[2020-07-18] VITALS (9 sets, daily range): BP systolic 110–128; BP diastolic 59–70; PULSE 75–95; RESP 14–24; TEMP 37.1; O2SAT 95–100; BMI 45.8
--- NOTE | 2020-07-18 07:25 | ED_ITS ---
HPI - SOB/Dyspnea General Chief Complaint: Recheck/Abnormal Lab/Rx Stated Complaint: SHORTNESS OF BREATH,TIGHTNESS IN CHEST,HEART FAST Time Seen by Provider: 07/18/20 07:20 History of Present Illness HPI Narrative: 30-year-old woman with a history of Graves disease who presents with palpitations anxiety and sense of impending doom. She was followed by Dr. Dodd at [facility] in [place] but lost her insurance last urine has not been seen for almost a year. Her last methimazole at 5 mg was in September and she has not been using any additional medications. She felt that she was doing well until the last few months when she has noticed increasing anxiety, palpitations, tremor and increasing anxiety. She is concerned that heart rate of 120 while she is doing simple chores around the house is going to cause her to have a heart attack and on the spot. She was in the emergency room last night and had a very thorough workup that included serial cardiac enzymes that were unremarkable. Imaging that did not suggest pneumonia cardiomegaly wide mediastinum pneumothorax, no evidence of pulmonary embolism no evidence of other infection. Subclinical hypo thyroidism with an undetectable TSH and normal free T4, T4 and T3. She was discharged home with reassurance. She had spoken with her program associate yesterday on the phone and they had prescribed methimazole 5 mg that she had not yet picked up as well as metoprolol 50 mg. When she got home she again had increasing anxiety notice that her heart rate was up in getting from the ER to home and presented within 2 hours of discharge with similar complaints concerns and anxiety. Related Data Home Medications Medication Instructions Recorded Confirmed methimazole 5 mg tablet 15 mg PO TID tab 08/10/18 02/20/19 calcium carbonate [Tums] 300 mg PO PRN PRN 02/02/19 02/20/19 Previous Rx's Medication Instructions Recorded sertraline [Zoloft] 50 mg PO QDAY #90 tab 04/24/19 hydrocodone-acetaminophen [[place]] 1 tab PO Q4-6H PRN #7 tab 04/28/20 ketorolac 10 mg PO TID #15 tab 04/28/20 ondansetron 4 mg PO Q6H PRN #10 tab 04/28/20 diazepam 5 mg PO BID PRN #30 tab 07/18/20 methimazole 5 mg PO DAILY #90 tab 07/18/20 metoprolol tartrate 50 mg PO BID #60 tab 07/18/20 Allergies Allergy/AdvReac Type Severity Reaction Status Date / Time oxycodone [From Percocet] AdvReac Intermediate Vomiting Verified 02/20/19 14:35 Review of Systems Review of Systems Narrative: Pertinent positive and negative findings as per HPI Remainder of review of systems is otherwise unremarkable for Constitutional: Fevers, chills, weakness ENT: No sore throat, neck pain, ear pain Respiratory: Cough, wheeze, GI: Nausea, vomiting, diarrhea, : Dysuria, hematuria, flank pain MS: Muscle weakness, numbness, joint swelling or warmth Skin: Rashes, nonhealing lesions Neuro: Syncope, Psych: suicidal ideation Endocrine: heat or cold intolerance, very dry skin Patient History Medical History Anemia (Chronic ~2013) Anxiety and depression (Acute) Chicken pox (Resolved ~1999) Chronic back pain (Chronic ~2006) Graves' disease (Acute) Headache (Chronic ~2006) Migraines (Chronic ~2006) Ovarian cyst (Chronic ~2014) Sinus infection (Acute ~07/2018) Surgical History Status post laparoscopic cholecystectomy (~2013) Family History Grandmother Age: 78 Hypertension High cholesterol Mental health problem Stroke Diabetes mellitus Kidney failure Mother Age: 48 Depression Colitis Arthritis Smoker Early menopause Grandfather No problems noted. Social History household members: spouse and children Smoking Status: Never smoker alcohol intake: current Smoking Status: Never smoker alcohol intake frequency: holidays/special occasions only Substance Use Type: does not use Exam Narrative Exam Narrative: General: Healthy appearing, in no acute distress. Able to give a complete and coherent history. Well-nourished well-developed HEENT: Moist mucous membranes, normal sclera with reactive pupils, no significant exophthalmos Neck: No JVD, supple, no thyroid murmurs and no significant goiter appreciated Respiratory: Lungs are clear to auscultation, no wheezing no rales no rhonchi. Full and symmetrical air movement Cardiac: Tachycardic but Regular rate and rhythm no murmurs no bruits Abdomen: Soft nontender good bowel tones, no flank pain Skin: Warm and dry, no rashes Neurologic: Grossly neurologically intact with no obvious asymmetries or abnormalities Extremities: No trauma, well perfused Psych: Cooperative, appropriate insight and affect Initial Vital Signs Initial Vital Signs: Vital Signs Pulse Rate 95 H 07/18/20 07:23 Blood Pressure 128/69 07/18/20 07:23 Pulse Oximetry 97 07/18/20 07:23 Course Orders Ordered: ED Orders 07/18/20 08:26 Complete Blood Count AUTO DIFF Stat Comprehensive Metabolic Panel Stat Lipase Stat 07/18/20 08:28 Blood Culture Stat Lactate (Lactic Acid) Stat Sodium Chloride (Normal Saline 0.9%) 1,000 mls @ 150 mls/hr IV CONT MARTI Discontinued Medications Diazepam (Valium) 5 mg PO NOW ONE Stop: 07/18/20 08:09 Last Admin: 07/18/20 08:18 Dose: 5 mg Documented by: NOREEN Lidocaine HCl 8.8 ml/ Sodium (Chloride) 58.8 mls @ 352.8 mls/hr IV NOW ONE Stop: 07/18/20 08:23 Last Admin: 07/18/20 08:46 Dose: Not Given Documented by: NOREEN Sodium Chloride (Normal Saline 0.9%) 1,000 mls @ 1,000 mls/hr IV BOLUS ONE Stop: 07/18/20 09:26 Last Admin: 07/18/20 08:46 Dose: Not Given Documented by: NOREEN Ketorolac Tromethamine (Toradol) 15 mg IV NOW ONE Stop: 07/18/20 08:28 Last Admin: 07/18/20 08:46 Dose: Not Given Documented by: NOREEN Methimazole (Methimazole) 5 mg PO DAILY ONE Stop: 07/18/20 08:09 Last Admin: 07/18/20 08:19 Dose: 5 mg Documented by: NOREEN Ondansetron HCl (Zofran) 4 mg IV NOW ONE Stop: 07/18/20 08:28 Last Admin: 07/18/20 08:46 Dose: Not Given Documented by: NOREEN Vital Signs Vital signs: Vital Signs - 8 hr 07/18/20 07:23 07/18/20 07:26 07/18/20 07:30 Temperature 98.8 F Pulse Rate 95 H 95 H 91 H Respiratory Rate 20 14 Blood Pressure 128/69 128/69 120/62 Pulse Oximetry 97 100 97 07/18/20 07:59 07/18/20 08:00 07/18/20 08:30 Temperature Pulse Rate 91 H 89 80 Respiratory Rate 24 20 20 Blood Pressure 122/70 Pulse Oximetry 97 98 95 07/18/20 08:31 07/18/20 09:00 Temperature Pulse Rate 80 77 Respiratory Rate 20 19 Blood Pressure 112/62 110/59 L Pulse Oximetry 97 97 MDM - SOB/Dyspnea Lab Data Attestation: I reviewed the patient's lab results. Lab results narrative: Labs from earlier in the evening or reviewed. CBC CMP are normal. TSH is undetectable at less than 0.015 minutes however free T4, T4 and T3 are within normal limits. MDM Narrative Medical decision making narrative: 30-year-old woman with Graves disease who is now without insurance and without medication for her Graves disease with increasing symptoms of her hyperthyroidism with palpitations, anxiety, chest pain and pressure with unremarkable cardiac workup last night. In the emergency room she is given her 1st dose of methimazole, she had taken 50 mg of metoprolol just prior to arrival she is also given 5 mg of diazepam for the significant anxiety. Discussion with Dr. Dodd, her program associate. He recommended continued 5 mg of methimazole, b.i.d. 50 mg of metoprolol agreed with brief course of diazepam until these medicines are working and also strongly recommended repeat blood work necessary in about 3 months to make sure that were on the right track and she is doing well. She is safe for home discharge Discharge Plan Departure Patient Disposition: Home Clinical Impression: Graves disease, Hyperthyroidism Instructions: DI for Graves Disease Activity Restrictions/Additional Instructions: Thank you for coming in Your symptoms sound terrifying, fortunately they are not life-threatening. You are not having a heart attack and you are not going to have a heart attack. Your rapid heart rate and rapid heart rate with any sort of exertion is because of your thyroid issue. I have spoken with Dr. Dodd and reviewed your recent blood work with him as well. He is recommended that you -restart your methimazole at 5 mg a day (please picker and sorter load and unload the prescription, you did have a dose) today in the ER -use metoprolol 50 mg twice a day for heart rate control -use diazepam 5 mg 1 or 2 a day over the next week or so to help with the anxiety side effects while the 1st 2 medicines are beginning to truly take affect [facility] You do need to follow-up with a primary care physician and you will need blood work in about 3 months. I will give you prescriptions to last about 3 months. I wish you the very best Prescriptions: New methimazole 5 mg tablet 5 mg PO DAILY Qty: 90 RF: 0 metoprolol tartrate 50 mg tablet 50 mg PO BID Qty: 60 RF: 3 diazepam 5 mg tablet 5 mg PO BID PRN (Reason: anxiety) Qty: 30 RF: 0 No Action sertraline [Zoloft] 50 mg tablet 50 mg PO QDAY Qty: 90 RF: 3 methimazole 5 mg tablet 15 mg PO TID RF: 0 calcium carbonate [Tums] 300 mg (750 mg) Tablet,Chewable 300 mg PO PRN PRN (Reason: reflux) RF: 0 ondansetron 4 mg tablet,disintegrating 4 mg PO Q6H PRN (Reason: nausea and vomiting) Qty: 10 RF: 0 ketorolac 10 mg tablet 10 mg PO TID Qty: 15 RF: 0 hydrocodone-acetaminophen [[place]] 5-325 mg tablet 1 tab PO Q4-6H PRN (Reason: pain) Qty: 7 RF: 0
[2020-07-18] MEDS: diazePAM 5 MG TABLET PO (08:18)
[2020-07-18] MEDS: methIMAzole 5 MG TABLET PO (08:19)
== END 2020-07-18 10:11 | disposition home or self-care (01) ==
PROVIDERS: Emergency Provider Emergency Medicine
DX: E05.00 Thyrotoxicosis with diffuse goiter without thyrotoxic crisis or storm (principal)
CPT/HCPCS: 99283; 99284

== ENCOUNTER → 2021-02-13 15:54 | Outpatient (CLI) | payer OTHER, SELFPAY ==
--- NOTE | 2021-02-13 15:57 | DI.RAD.S_ITS ---
PROCEDURE: XR KNEE LT 3V INDICATIONS: left KNEE pain TECHNIQUE: 3 views of the knee were acquired. COMPARISON: None. FINDINGS: Bones: No fractures or dislocations. No suspicious bony lesions. Mild medial compartment joint space narrowing noted. Soft tissues: No joint effusion. No suspicious soft tissue calcifications. IMPRESSION: Mild medial compartment joint space narrowing. No fracture or malalignment. Dictated by: Luis Alberto Munoz M.D. on 02/13/2021 at 17:45 Approved by: Luis Alberto Munoz M.D. on 02/13/2021 at 17:46
--- NOTE | 2021-02-13 15:57 | DI.RAD.S_ITS ---
PROCEDURE: XR HAND LT MIN 3V INDICATIONS: left hand pain TECHNIQUE: 3 views of the hand(s) acquired. COMPARISON: None. FINDINGS: Bones: No fractures or dislocations. Carpal bones are normally aligned. No suspicious bony lesions. Soft tissues: No suspicious soft tissue calcifications. IMPRESSION: Unremarkable left hand radiographs Dictated by: Luis Alberto Munoz M.D. on 02/13/2021 at 17:46 Approved by: Luis Alberto Munoz M.D. on 02/13/2021 at 17:51
[2021-02-13 17:22] LABS: Add Manual Diff / Slide Review NO; Basophils Absolute Auto 0 /uL (0-100); Basophils Percent Auto 0.5 % (0-2); Eosinophils Absolute Auto 100 /uL (0-450); Eosinophils Percent Auto 1.2 % (2-4); Hemoglobin 12.2 g/dL (12.0-16.0); Lymphocytes Absolute Auto 2200 /uL (1100-4500); Lymphocytes Percent Auto 28.2 % (25-40); Mean Corpuscular HGB Conc 33.8 % (30-36); Monocytes Absolute Auto 500 /uL (0-900); Monocytes Percent Auto 6.3 % (3-14); Neutrophils Absolute Auto 5000 /uL (1500-7000); Neutrophils Percent Auto 63.8 % (50-75); Platelet Count 316 X10^3/uL (150-400); Red Blood Cell Count 4.34 X10^6/uL (4.0-5.2); Red Cell Distribution Width 13.8 % (11.6-14.8); White Blood Cell Count 7.9 X10^3/uL (4.5-11.0)
[2021-02-13 17:43] LABS: Alanine Aminotransferase 19 IU/L (<35); Albumin 4.1 g/dL (3.5-5.0); Albumin Globulin Ratio 1.1 (1.0-2.8); Alkaline Phosphatase 54 U/L (38-126); Aspartate Aminotransferase 23 IU/L (14-36); BUN Creatinine Ratio 23.4 (6-22); Bilirubin Total 0.1 mg/dL (0.2-1.3); Blood Urea Nitrogen 15 mg/dL (7-17); Calcium 9.3 mg/dL (8.4-10.2); Carbon Dioxide 28 mmol/L (22-32); Chloride 104 mmol/L (98-107); Estimated Glomerular Filt Rate > 60.0 mL/min (>60); Globulin 3.6 g/dL (1.7-4.1); Glucose 86 mg/dL (70-100); HEMOLYSIS < 15 (0-50); Potassium 3.8 mmol/L (3.4-5.1); Sodium 142 mmol/L (137-145); Total Protein 7.7 g/dL (6.3-8.2)
== END ==
PROVIDERS: PCP Registered Nurse; Referring Provider Registered Nurse; Visit Provider Registered Nurse
DX: M25.562 Pain in left knee (principal); M79.642 Pain in left hand; F41.8 Other specified anxiety disorders
CPT/HCPCS: 36415; 73130; 73562; 80053; 85025

== ENCOUNTER → 2021-12-02 09:20 | Outpatient (CLI) | payer OTHER, SELFPAY ==
--- NOTE | 2021-12-02 09:21 | DI.RAD.S_ITS ---
PROCEDURE: XR CERVICAL SPINE 2V OR 3V INDICATIONS: neck pain, chronic TECHNIQUE: 3 view(s) of the cervical spine were acquired. COMPARISON: None. FINDINGS: Bones: No fractures or dislocations to the T1 level. The lateral masses of C1 appear intact on the odontoid view. No suspicious bony lesions. Soft tissues: No prevertebral soft tissue swelling. IMPRESSION: Normal cervical spine radiographs Approved by: Luis Alberto Munoz M.D. on 12/02/2021 at 14:43
--- NOTE | 2021-12-02 09:21 | DI.RAD.S_ITS ---
PROCEDURE: XR HAND RT MIN 3V INDICATIONS: neck pain, chronic; bilateral hand pain TECHNIQUE: 3 views of the hand(s) acquired. COMPARISON: [facility], CR, XR HAND LT MIN 3V, 12/02/2021, 10:35. FINDINGS: Bones: No fractures or dislocations. Carpal bones are normally aligned. No suspicious bony lesions. Soft tissues: No suspicious soft tissue calcifications. IMPRESSION: Normal radiograph of the right hand. No source of pain is identified. Dictated by: Filippo Salguero M.D. on 12/02/2021 at 16:08 Approved by: Filippo Salguero M.D. on 12/02/2021 at 16:10
--- NOTE | 2021-12-02 09:21 | DI.RAD.S_ITS ---
PROCEDURE: XR HAND LT MIN 3V INDICATIONS: neck pain, chronic. Hand pain bilateral TECHNIQUE: 3 views of the hand(s) acquired. COMPARISON: [facility], CR, XR HAND RT MIN 3V, 12/02/2021, 10:34. FINDINGS: Bones: No fractures or dislocations. Carpal bones are normally aligned. No suspicious bony lesions. Soft tissues: No suspicious soft tissue calcifications. IMPRESSION: No acute fracture. No osseous lesion. If symptoms and/or clinical suspicion for pathology persist, further assessment with repeat, or advanced imaging (e.g., CT, MRI, or bone scan) may be helpful for further assessment. Dictated by: Yamilka Santiago M.D. on 12/02/2021 at 12:36 Approved by: Yamilka Santiago M.D. on 12/02/2021 at 12:37
[2021-12-02 10:56] LABS: Add Manual Diff / Slide Review NO; Basophils Absolute Auto 0 /uL (0-100); Basophils Percent Auto 0.6 % (0-2); Eosinophils Absolute Auto 100 /uL (0-450); Hematocrit 37.1 % (36-46); Hemoglobin 12.3 g/dL (12.0-16.0); Lymphocytes Absolute Auto 1700 /uL (1100-4500); Lymphocytes Percent Auto 31.5 % (25-40); Mean Corpuscular HGB Conc 33.1 % (30-36); Mean Corpuscular Hemoglobin 27.5 PG (26-34); Mean Corpuscular Volume 83.1 fL (80-100); Monocytes Absolute Auto 400 /uL (0-900); Monocytes Percent Auto 6.9 % (3-14); Neutrophils Absolute Auto 3200 /uL (1500-7000); Platelet Count 291 X10^3/uL (150-400); Red Blood Cell Count 4.46 X10^6/uL (4.0-5.2); White Blood Cell Count 5.4 X10^3/uL (4.5-11.0)
[2021-12-02 11:07] LABS: Alanine Aminotransferase 16 IU/L (<35); Albumin 4.4 g/dL (3.5-5.0); Albumin Globulin Ratio 1.3 (1.0-2.8); Alkaline Phosphatase 45 U/L (38-126); Aspartate Aminotransferase 22 IU/L (14-36); BUN Creatinine Ratio 14.9 (6-22); Bilirubin Total 0.5 mg/dL (0.2-1.3); Blood Urea Nitrogen 10 mg/dL (7-17); C-Reactive Protein Quant 1.9 mg/dL (<1.0); Carbon Dioxide 30 mmol/L (22-32); Chloride 105 mmol/L (98-107); Cholesterol 150 mg/dL (140-199); Estimated Glomerular Filt Rate > 60.0 mL/min (>60); Globulin 3.5 g/dL (1.7-4.1); Glucose 84 mg/dL (70-100); HDL Cholesterol 36 mg/dL (40-60); HEMOLYSIS < 15 (0-50); LDL Cholesterol Calculated 98 mg/dL (<100); Potassium 4.2 mmol/L (3.4-5.1); Sodium 139 mmol/L (137-145); Total Protein 7.9 g/dL (6.3-8.2); Triglycerides 78 mg/dL (35-150)
[2021-12-02 11:08] LABS: Rheumatoid Factor < 8.6 IU/mL (<12.0)
[2021-12-02 11:12] LABS: Erythrocyte Sedimentation Rate 48 MM/HR (0-20)
[2021-12-04 14:01] LABS: ANA Screen, IFA Negative (.)
== END ==
PROVIDERS: PCP Family Medicine; Referring Provider Family Medicine; Visit Provider Family Medicine
DX: M79.641 Pain in right hand (principal); M25.649 Stiffness of unspecified hand, not elsewhere classified; G89.29 Other chronic pain; M79.642 Pain in left hand; F32.1 Major depressive disorder, single episode, moderate; M54.2 Cervicalgia; F41.0 Panic disorder [episodic paroxysmal anxiety]; F41.1 Generalized anxiety disorder
CPT/HCPCS: 36415; 72040; 73130; 80053; 80061; 84550; 85025; 85651; 86038; 86140; 86430

== ENCOUNTER → 2021-12-04 13:41 | Outpatient (CLI) | payer OTHER, SELFPAY ==
--- NOTE | 2021-12-19 16:16 | PM.CARDMON.1 ---
Aircraft Load Controller Report Referral & Results Date Patient Seen: 12/04/21 Requesting provider: Tyler Owens Indication: Palpitations Duration of monitoring (days): 7 Diary information: There were 6 patient triggered events and 6 patient diary entries All 12 of these events were associated variably (within 45 seconds) sinus rhythm and PVCs Data: Minimum heart rate identified was 47 beats per minute at 02:16 on 12/11/2021 Maximum heart rate was 152 beats per minute at 14:12 on 12/06/2021 Less than 1% of identified beats were ventricular or supraventricular ectopic in origin, which would classify them as rare. There were no pauses or atrial fibrillation identified on this study Impression: 7 day youth nutritional monitor demonstrating simple PVCs as a possible source of sense of palpitations based on patient events Clinical correlation suggested
== END ==
PROVIDERS: PCP Family Medicine; Referring Provider Family Medicine; Visit Provider Family Medicine
DX: R00.2 Palpitations (principal)
CPT/HCPCS: 93242; 93244

== ENCOUNTER → 2022-01-21 09:06 | Outpatient (CLI) | payer OTHER, SELFPAY ==
[2022-01-21 11:18] LABS: Erythrocyte Sedimentation Rate 32 MM/HR (0-20)
[2022-01-21 11:22] LABS: C-Reactive Protein Quant 2.1 mg/dL (<1.0)
[2022-01-24 22:48] LABS: CCP Antibodies IgG/IgA 6 units (0-19)
== END ==
PROVIDERS: PCP Family Medicine; Referring Provider Family Medicine; Visit Provider Family Medicine
DX: G89.29 Other chronic pain (principal); M25.562 Pain in left knee; M79.642 Pain in left hand; R79.82 Elevated C-reactive protein (CRP)
CPT/HCPCS: 36415; 85651; 86140; 86200

== ENCOUNTER → 2022-02-23 09:28 | Outpatient (CLI) | payer OTHER, SELFPAY ==
--- NOTE | 2022-02-23 09:38 | DI.RAD.S_ITS ---
PROCEDURE: XR HIP W PEL IF DONE JS MIN 4V INDICATIONS: ARTRITUS TECHNIQUE: AP pelvis with lateral view(s) of the bilateral hip(s). COMPARISON: None. FINDINGS: Bones: No fractures or dislocations. Pelvic ring appears intact. No suspicious bony lesions. Soft tissues: The visualized bowel gas pattern is normal. No suspicious soft tissue calcifications. IMPRESSION: Unremarkable radiographic examination of bilateral hips. Dictated by: Reji Eubanks M.D. on 02/23/2022 at 10:49 Approved by: Reji Eubanks M.D. on 02/23/2022 at 10:50
--- NOTE | 2022-02-23 09:38 | DI.RAD.S_ITS ---
PROCEDURE: XR KNEE LT 1TO2V INDICATIONS: ARTRITUS TECHNIQUE: 1 views of the knee were acquired. COMPARISON: [facility], CR, XR KNEE LT 3V, 02/13/2021, 16:05. FINDINGS: Bones: Mild joint space narrowing at the medial compartments. No significant osteophytosis. No fractures or dislocations. No suspicious bony lesions. Soft tissues: No joint effusion. No suspicious soft tissue calcifications. IMPRESSION: Suspect mild bilateral DJD at the medial compartments. Dictated by: Jose García M.D. on 02/23/2022 at 10:28 Approved by: Jose García M.D. on 02/23/2022 at 10:29
--- NOTE | 2022-02-23 09:38 | DI.RAD.S_ITS ---
PROCEDURE: XR CHEST 2V INDICATIONS: Arthritis TECHNIQUE: 2 views of the chest were acquired. COMPARISON: [facility], CR, XR CHEST 1V, 07/18/2020, 0:17. FINDINGS: Surgical changes and devices: None. Lungs and pleura: Lungs are clear. No pleural effusions or pneumothorax. Mediastinum: Mediastinal contours are normal. Heart size is normal. Bones and chest wall: No suspicious bony abnormalities. Soft tissues appear unremarkable. IMPRESSION: No acute cardiopulmonary abnormality. Dictated by: Agustin Lacey M.D. on 02/23/2022 at 10:49 Approved by: Agustin Lacey M.D. on 02/23/2022 at 10:54
--- NOTE | 2022-02-23 09:38 | DI.RAD.S_ITS ---
PROCEDURE: XR JOINT SURVEY INDICATIONS: ARTHRITUS TECHNIQUE: 1 view(s) of the both hands acquired. COMPARISON: [facility], CR, XR HAND LT MIN 3V, 12/02/2021, 10:35. [facility], CR, XR HAND RT MIN 3V, 12/02/2021, 10:34. FINDINGS: Bones: No fractures or dislocations. No suspicious bony lesions. Soft tissues: No suspicious soft tissue calcifications. IMPRESSION: No significant osseous abnormality. Dictated by: Jose García M.D. on 02/23/2022 at 10:29 Approved by: Jose García M.D. on 02/23/2022 at 10:31
--- NOTE | 2022-02-23 09:39 | DI.RAD.S_ITS ---
PROCEDURE: XR LUMBAR SPINE 2-3V INDICATIONS: ARTHRITUS TECHNIQUE: 3 views of the lumbar spine were acquired. COMPARISON: [facility], , THORACIC SPINE 3 VIEWS, 08/21/2014, 11:18. FINDINGS: Bones: 5 [id number] vertebrae are present. There is normal bony alignment. No vertebral body compression fractures. No suspicious bony lesions. There is mild degenerative disc disease at L1-L2, L2-L3, L3-L4 and L4-L5. Soft tissues: Overlying bowel gas pattern is normal. No suspicious soft tissue calcifications. Cholecystectomy clips are noted. IMPRESSION: Mild degenerative disc disease in lumbar spine. Dictated by: Filippo Salguero M.D. on 02/23/2022 at 10:52 Approved by: Filippo Salguero M.D. on 02/23/2022 at 10:58
--- NOTE | 2022-02-23 09:39 | DI.RAD.S_ITS ---
PROCEDURE: XR SHOULDER LT MIN 2V INDICATIONS: ARTHRITUS TECHNIQUE: 3 views of the shoulder were acquired. COMPARISON: None. FINDINGS: Bones: No acute fractures or dislocations. No suspicious bony lesions. Visualized ribs appear intact. Minimal acromioclavicular joint osteoarthrosis. No significant glenohumeral degenerative changes visualized. Soft tissues: No suspicious soft tissue calcifications. IMPRESSION: No acute osseous abnormality. If the symptoms persist, consider cross sectional imaging such as MRI or CT for further assessment. Dictated by: Gui Flores M.D. on 02/23/2022 at 11:44 Approved by: Gui Flores M.D. on 02/23/2022 at 11:46
--- NOTE | 2022-02-23 09:39 | DI.RAD.S_ITS ---
PROCEDURE: XR FOOT LT 2V INDICATIONS: ARTHRITUS TECHNIQUE: 3 views of the foot were acquired. COMPARISON: None. FINDINGS: Bones: No fractures or dislocations. No suspicious bony lesions. No erosions or evidence of inflammatory arthropathy. Soft tissues: No tibiotalar joint effusion. Achilles tendon appears normal. IMPRESSION: Normal left foot. No radiographic evidence of inflammatory arthropathy. Dictated by: Agustin Lacey M.D. on 02/23/2022 at 10:56 Approved by: Agustin Lacey M.D. on 02/23/2022 at 10:57
--- NOTE | 2022-02-23 09:39 | DI.RAD.S_ITS ---
PROCEDURE: XR FOOT RT 2V INDICATIONS: ARTHRITUS TECHNIQUE: 3 views of the foot were acquired. COMPARISON: None. FINDINGS: Bones: No fractures or dislocations. No suspicious bony lesions. No erosions or evidence of inflammatory arthropathy. Soft tissues: No tibiotalar joint effusion. Achilles tendon appears normal. IMPRESSION: Normal right foot. No radiographic evidence of inflammatory arthropathy. Dictated by: Agustin Lacey M.D. on 02/23/2022 at 10:55 Approved by: Agustin Lacey M.D. on 02/23/2022 at 10:56
--- NOTE | 2022-02-23 09:39 | DI.RAD.S_ITS ---
PROCEDURE: XR SHOULDER RT MIN 2V INDICATIONS: ARTHRITUS TECHNIQUE: 3 views of the shoulder were acquired. COMPARISON: None. FINDINGS: Bones: No acute fractures or dislocations. No suspicious bony lesions. Visualized ribs appear intact. No significant arthritic changes. Soft tissues: No suspicious soft tissue calcifications. IMPRESSION: No acute osseous abnormality. If the symptoms persist, consider cross sectional imaging such as MRI or CT for further assessment. Dictated by: Gui Flores M.D. on 02/23/2022 at 11:46 Approved by: Gui Flores M.D. on 02/23/2022 at 11:47
== END ==
PROVIDERS: PCP Family Medicine; Referring Provider Nurse Practitioner; Visit Provider Nurse Practitioner
DX: M51.36 Other intervertebral disc degeneration, lumbar region (principal); M25.59 Pain in other specified joint; M25.562 Pain in left knee; M25.572 Pain in left ankle and joints of left foot; M25.571 Pain in right ankle and joints of right foot; M25.512 Pain in left shoulder; M25.511 Pain in right shoulder; M25.552 Pain in left hip; M25.551 Pain in right hip
CPT/HCPCS: 71046; 72100; 73030; 73522; 73560; 73620; 77077

== ENCOUNTER → 2023-03-04 08:58 | Outpatient (CLI) | payer OTHER, SELFPAY ==
[2023-03-04 09:57] LABS: Add Manual Diff / Slide Review NO; Basophils Absolute Auto 0 /uL (0-100); Basophils Percent Auto 0.6 % (0-2); Eosinophils Absolute Auto 100 /uL (0-450); Eosinophils Percent Auto 1.4 % (2-4); Hematocrit 37.5 % (36-46); Hemoglobin 12.7 g/dL (12.0-16.0); Lymphocytes Absolute Auto 1500 /uL (1100-4500); Lymphocytes Percent Auto 34.7 % (25-40); Mean Corpuscular HGB Conc 33.8 % (30-36); Mean Corpuscular Hemoglobin 28.3 PG (26-34); Mean Corpuscular Volume 83.8 fL (80-100); Monocytes Absolute Auto 300 /uL (0-900); Monocytes Percent Auto 6.3 % (3-14); Neutrophils Absolute Auto 2400 /uL (1500-7000); Platelet Count 283 X10^3/uL (150-400); Red Blood Cell Count 4.48 X10^6/uL (4.0-5.2); Red Cell Distribution Width 13.7 % (11.6-14.8); White Blood Cell Count 4.3 X10^3/uL (4.5-11.0)
[2023-03-04 10:23] LABS: Erythrocyte Sedimentation Rate 22 MM/HR (0-20)
[2023-03-04 10:55] LABS: Alanine Aminotransferase 24 IU/L (<35); Albumin 4.1 g/dL (3.5-5.0); Albumin Globulin Ratio 1.2 (1.0-2.8); Alkaline Phosphatase 41 U/L (38-126); Aspartate Aminotransferase 23 IU/L (14-36); BUN Creatinine Ratio 15.9 (6-22); Bilirubin Total 0.8 mg/dL (0.2-1.3); Blood Urea Nitrogen 11 mg/dL (7-17); C-Reactive Protein Quant 1.7 mg/dL (<1.0); Calcium 9.2 mg/dL (8.4-10.2); Carbon Dioxide 29 mmol/L (22-32); Chloride 103 mmol/L (98-107); Cholesterol 148 mg/dL (140-199); Estimated Glomerular Filt Rate > 60 mL/min (>60); Globulin 3.3 g/dL (1.7-4.1); Glucose 84 mg/dL (70-100); HDL Cholesterol 43 mg/dL (40-60); HEMOLYSIS 18 (0-50); LDL Cholesterol Calculated 90 mg/dL (<100); Potassium 4.3 mmol/L (3.4-5.1); Sodium 138 mmol/L (137-145); Total Protein 7.4 g/dL (6.3-8.2); Triglycerides 73 mg/dL (35-150)
[2023-03-04 11:20] LABS: TSH w/ Reflex to FT4 2.06 uIU/mL (0.47-4.68)
[2023-03-05 12:30] LABS: x Labcorp Estim. Avg Glu (eAG) 105 mg/dL (.); x Labcorp Hemoglobin A1c 5.3 % (4.8-5.6)
[2023-03-15 10:22] LABS: Percent Free Testosterone 1.12 % (0.50-2.80); Testosterone Free 0.33 ng/dL (0.10-0.85); Testosterone Total 29.7 ng/dL (10.0-55.0)
== END ==
PROVIDERS: PCP Family Medicine; Referring Provider Family Medicine; Visit Provider Family Medicine
DX: G89.29 Other chronic pain (principal); M79.642 Pain in left hand; M25.562 Pain in left knee; R79.82 Elevated C-reactive protein (CRP); E05.00 Thyrotoxicosis with diffuse goiter without thyrotoxic crisis or storm; F41.0 Panic disorder [episodic paroxysmal anxiety]; F41.1 Generalized anxiety disorder; F41.8 Other specified anxiety disorders; M19.90 Unspecified osteoarthritis, unspecified site; Z00.00 Encounter for general adult medical examination without abnormal findings
CPT/HCPCS: 36415; 80053; 80061; 83036; 84402; 84403; 84443; 85025; 85651; 86140

== ENCOUNTER 2024-01-21 18:41 | Emergency (ER) | payer OTHER, SELFPAY ==
[2024-01-21 19:01] VITALS: BP 136/72; PULSE 64; RESP 16; TEMP 36.6; O2SAT 97; BMI 44.2
--- NOTE | 2024-01-21 19:06 | DI.RAD.S_ITS ---
PROCEDURE: XR CHEST 1V INDICATIONS: chest pain TECHNIQUE: One view of the chest was acquired. COMPARISON: [facility], CR, XR CHEST 2V, 02/23/2022, 9:43. [facility], CR, XR CHEST 1V, 07/18/2020, 0:17. FINDINGS: Surgical changes and devices: None. Lungs and pleura: Lungs are clear. No pleural effusions or pneumothorax. Mediastinum: Mediastinal contours appear normal. Heart size is normal. Bones and chest wall: No suspicious bony lesions. Overlying soft tissues appear unremarkable. IMPRESSION: No acute cardiopulmonary abnormality is seen. Dictated by: Tj Park M.D. on 01/21/2024 at 19:39 Approved by: Tj Park M.D. on 01/21/2024 at 19:40
[2024-01-21 19:22] VITALS: BP 123/77
[2024-01-21 19:24] VITALS: PULSE 66; RESP 17; O2SAT 98
--- NOTE | 2024-01-21 19:28 | ED_ITS ---
HPI - Arrhythmia/Palpitations General Chief Complaint: Arrhythmia/Palpitations Stated Complaint: states heart symptoms Time Seen by Provider: 01/21/24 19:28 Source: patient Mode of arrival: Ambulatory History of Present Illness HPI narrative: Patient is a 33-year-old female is here for evaluation of palpitations, left shoulder pain, headache in the left side, she was also having symptoms of tingling in her left arm. Symptoms been going on for the past couple days. Did take propranolol prior to arrival. She was given propranolol because of palpitations related to anxiety. She has had a Holter monitor in the past. Related Data Home Medications Medication Instructions Recorded Confirmed calcium carbonate 300 mg (750 mg) 300 mg PO PRN PRN reflux 02/02/19 07/16/23 chewable tablet (Tums) Previous Rx's Medication Instructions Recorded norethindrone acetate 1 mg-ethinyl 1 tab PO DAILY #63 tabs 02/16/23 estradiol 20 mcg tablet (Loestrin) propranolol 40 mg tablet 40 mg PO BID PRN palpitations #60 02/16/23 tabs hydroxyzine HCl 25 mg tablet 25 mg PO BID PRN anxiety #14 tabs 06/24/23 Allergies Allergy/AdvReac Type Severity Reaction Status Date / Time oxycodone [From Percocet] AdvReac Intermediate Vomiting Verified 07/16/23 10:47 Review of Systems Constitutional Constitutional: Reports system reviewed and no additional complaints, except as documented Cardiovascular Cardiovascular: Reports system reviewed and no additional complaints, except as documented Respiratory Respiratory: Reports system reviewed and no additional complaints, except as documented Gastrointestinal Gastrointestinal: Reports system reviewed and no additional complaints, except as documented Integumentary/Breasts Skin/Breast: Reports system reviewed and no additional complaints, except as documented Neurologic Neurologic: Reports system reviewed and no additional complaints, except as documented Patient History Medical History Left knee pain Left hand pain Sinus infection (~07/2018) Anxiety and depression Graves' disease Migraines (~2006) Headache (~2006) Chronic back pain (~2006) Chicken pox (~1999) Anemia (~2013) Ovarian cyst (~2014) Surgical History Status post laparoscopic cholecystectomy (~2013) Family History Grandmother Age: 81 Hypertension High cholesterol Mental health problem Stroke Diabetes mellitus Kidney failure Mother Age: 51 Depression Colitis Arthritis Smoker Early menopause Grandfather No problems noted. Social History household members: spouse and children Smoking Status: Never smoker alcohol intake: current Smoking Status: Never smoker alcohol intake frequency: holidays/special occasions only Substance Use Type: does not use Exam Initial Vital Signs Initial Vital Signs: Vital Signs Temperature 97.8 F 01/21/24 19:01 Pulse Rate 64 01/21/24 19:01 Respiratory Rate 16 01/21/24 19:01 Blood Pressure 136/72 01/21/24 19:01 Pulse Oximetry 97 01/21/24 19:01 Oxygen Delivery Method Room Air 01/21/24 19:01 Const General: cooperative, comfortable and No ill appearing HENMT Head: normal to inspection and normocephalic Resp Effort & Inspection: normal respiratory effort Auscultation: clear to auscultation bilaterally Cardio Rate: regular rate Rhythm: regular rhythm Skin General: no rashes or lesions noted Neuro General: patient alert, patient awake and moves all extremities Course Orders Ordered: ED Orders 01/21/24 19:06 XR chest 1V Stat EKG-12 Lead Stat 01/21/24 19:25 Complete Blood Count AUTO DIFF Stat Comprehensive Metabolic Panel Stat Lipase Stat Magnesium Stat PTT Partial Thromboplastin Vinod Stat Prothrombin Time INR Stat Troponin & CK Cardiac Panel Stat Vital Signs Vital signs: Vital Signs - 8 hr 01/21/24 19:01 01/21/24 19:22 01/21/24 19:24 Temperature 97.8 F Pulse Rate 64 66 Respiratory Rate 16 17 Blood Pressure 136/72 123/77 Pulse Oximetry 97 98 Oxygen Delivery Method Room Air 01/21/24 19:30 01/21/24 19:30 01/21/24 20:00 Temperature Pulse Rate 70 Respiratory Rate 18 Blood Pressure 119/80 108/69 Pulse Oximetry 99 Oxygen Delivery Method 01/21/24 20:00 Temperature Pulse Rate 61 Respiratory Rate 16 Blood Pressure Pulse Oximetry 97 Oxygen Delivery Method MDM - Arrhythmia/Palpitations Lab Data Attestation: I reviewed the patient's lab results. 01/21/24 19:25 01/21/24 19:25 Labs: Lab Results 01/21/24 Range/Units 19:25 WBC 10.0 (4.5-11.0) X10^3/uL RBC 4.38 (4.0-5.2) X10^6/uL Hgb 12.5 (12.0-16.0) g/dL Hct 37.5 (36-46) % MCV 85.6 (80-100) fL MCH 28.5 (26-34) PG MCHC 33.3 (30-36) % RDW 13.8 (11.6-14.8) % Plt Count 315 (150-400) X10^3/uL Neut % (Auto) 56.0 (50-75) % Lymph % (Auto) 33.8 (25-40) % Freestone % (Auto) 7.4 (3-14) % Eos % (Auto) 1.8 L (2-4) % Baso % (Auto) 1.0 (0-2) % Neut # (Auto) 5600 (3843-8547) /uL Lymph # (Auto) 3400 (0611-2071) /uL Freestone # (Auto) 700 (0-900) /uL Eos # (Auto) 200 (0-450) /uL Baso # (Auto) 100 (0-100) /uL PT 11.1 (9.4-12.5) SECONDS INR 1.0 (0.9-1.3) APTT 31 (25.1-36.5) SECONDS Sodium 137 (137-145) mmol/L Potassium 3.9 (3.4-5.1) mmol/L Chloride 105 (98-107) mmol/L Carbon Dioxide 29 (22-32) mmol/L BUN 18 H (7-17) mg/dL Creatinine 0.63 (0.52-1.04) mg/dL Estimated GFR > 60 (>60) mL/min BUN/Creatinine Ratio 28.6 H (6-22) Glucose 83 (70-100) mg/dL Calcium 8.8 (8.4-10.2) mg/dL Magnesium 2.1 (1.6-2.3) mg/dL Total Bilirubin 0.4 (0.2-1.3) mg/dL AST 28 (14-36) IU/L ALT 20 (<35) IU/L Alkaline Phosphatase 45 (38-126) U/L Total Creatine Kinase 46 (30-135) U/L Troponin I < 0.012 (0.01-0.034) ng/mL Total Protein 7.1 (6.3-8.2) g/dL Albumin 3.7 (3.5-5.0) g/dL Globulin 3.4 (1.7-4.1) g/dL Albumin/Globulin Ratio 1.1 (1.0-2.8) Lipase 166 (23-300) U/L ECG Data Attestation: I personally reviewed and interpreted this ECG as follows: Interpretation: Sinus rhythm Ventricular rate of 65 Normal axis Normal QRS Normal QTC No ST T wave changes MDM Narrative Medical decision making narrative: Patient is not currently having palpitations. EKGs unremarkable. Labs are unremarkable. No ectopy on the monitor. Electrolytes are unremarkable. Low suspicion for ACS, low suspicion for CVA. I do suspect an anxiety component to her symptoms. No indication to change any of her medicines. Advised that she contact her primary doctor for follow-up to discuss the indications for another anxiety medicine besides the propranolol. Patient is safe for discharge home. Discharge Plan Departure Patient Disposition: Home Clinical Impression: Palpitations Instructions: Arrhythmias Activity Restrictions/Additional Instructions: Recommend that you continue to take all of your medications as directed. Keep all of your scheduled medical appointments. Return to the emergency department for new or worsening symptoms. Prescriptions: No Action hydroxyzine HCl 25 mg tablet 25 mg PO BID PRN (Reason: anxiety) Qty: 14 0RF norethindrone ac-eth estradiol [Loestrin 11/13 ()] 1-20 mg-mcg tablet 1 tab PO DAILY Qty: 63 1RF propranolol 40 mg tablet 40 mg PO BID PRN (Reason: palpitations) Qty: 60 0RF calcium carbonate [Tums] 300 mg (750 mg) Tablet,Chewable 300 mg PO PRN PRN (Reason: reflux) Referrals: Tyler Owens MD [Primary Care Provider] - Stand Alone Forms: Patient Portal/API
[2024-01-21 19:30] VITALS: BP 119/80; PULSE 70; RESP 18; O2SAT 99
[2024-01-21 19:34] LABS: Add Manual Diff / Slide Review NO; Basophils Absolute Auto 100 /uL (0-100); Eosinophils Absolute Auto 200 /uL (0-450); Eosinophils Percent Auto 1.8 % (2-4); Hematocrit 37.5 % (36-46); Hemoglobin 12.5 g/dL (12.0-16.0); Lymphocytes Absolute Auto 3400 /uL (1100-4500); Lymphocytes Percent Auto 33.8 % (25-40); Mean Corpuscular HGB Conc 33.3 % (30-36); Mean Corpuscular Hemoglobin 28.5 PG (26-34); Mean Corpuscular Volume 85.6 fL (80-100); Monocytes Absolute Auto 700 /uL (0-900); Monocytes Percent Auto 7.4 % (3-14); Neutrophils Absolute Auto 5600 /uL (1500-7000); Platelet Count 315 X10^3/uL (150-400); Red Blood Cell Count 4.38 X10^6/uL (4.0-5.2); Red Cell Distribution Width 13.8 % (11.6-14.8)
[2024-01-21 19:42] LABS: Prothrombin Time 11.1 SECONDS (9.4-12.5)
[2024-01-21 19:45] LABS: PTT Partial Thromboplastin Tim 31 SECONDS (25.1-36.5)
[2024-01-21 19:55] LABS: Alanine Aminotransferase 20 IU/L (<35); Albumin 3.7 g/dL (3.5-5.0); Albumin Globulin Ratio 1.1 (1.0-2.8); Alkaline Phosphatase 45 U/L (38-126); Aspartate Aminotransferase 28 IU/L (14-36); BUN Creatinine Ratio 28.6 (6-22); Bilirubin Total 0.4 mg/dL (0.2-1.3); Blood Urea Nitrogen 18 mg/dL (7-17); Calcium 8.8 mg/dL (8.4-10.2); Carbon Dioxide 29 mmol/L (22-32); Chloride 105 mmol/L (98-107); Creatine Kinase 46 U/L (30-135); Estimated Glomerular Filt Rate > 60 mL/min (>60); Globulin 3.4 g/dL (1.7-4.1); Glucose 83 mg/dL (70-100); HEMOLYSIS < 15 (0-50); Lipase 166 U/L (23-300); Magnesium 2.1 mg/dL (1.6-2.3); Potassium 3.9 mmol/L (3.4-5.1); Sodium 137 mmol/L (137-145); Total Protein 7.1 g/dL (6.3-8.2)
[2024-01-21 20:00] VITALS: BP 108/69; PULSE 61; RESP 16; O2SAT 97
[2024-01-21 20:07] LABS: Troponin I < 0.012 ng/mL (0.01-0.034)
== END 2024-01-21 20:22 | disposition home or self-care (01) ==
PROVIDERS: Emergency Provider Emergency Medicine; PCP Family Medicine
DX: R00.2 Palpitations (principal)
CPT/HCPCS: 36415; 71045; 80053; 82550; 83690; 83735; 84484; 85025; 85610; 85730; 93005; 99283; 99284

== ENCOUNTER → 2024-01-25 07:13 | Outpatient (CLI) | payer OTHER, SELFPAY ==
[2024-01-25 09:10] LABS: Free T3, Triiodothyronine Free 3.62 pg/mL (2.77-5.27); Free T4, Direct Thyroxine 0.97 ng/dL (0.78-2.19)
== END ==
PROVIDERS: PCP Family Medicine; Referring Provider Family Medicine; Visit Provider Family Medicine
DX: E05.00 Thyrotoxicosis with diffuse goiter without thyrotoxic crisis or storm (principal)
CPT/HCPCS: 36415; 84439; 84443; 84481

== ENCOUNTER → 2024-03-16 09:19 | Outpatient (CLI) | payer OTHER, SELFPAY ==
[2024-03-16 09:51] LABS: Add Manual Diff / Slide Review NO; Basophils Absolute Auto 0 /uL (0-100); Basophils Percent Auto 0.6 % (0-2); Eosinophils Absolute Auto 100 /uL (0-450); Hematocrit 38.4 % (36-46); Hemoglobin 12.8 g/dL (12.0-16.0); Lymphocytes Absolute Auto 1600 /uL (1100-4500); Lymphocytes Percent Auto 28.4 % (25-40); Mean Corpuscular HGB Conc 33.2 % (30-36); Mean Corpuscular Hemoglobin 28.5 PG (26-34); Mean Corpuscular Volume 85.7 fL (80-100); Monocytes Absolute Auto 400 /uL (0-900); Monocytes Percent Auto 6.7 % (3-14); Neutrophils Absolute Auto 3700 /uL (1500-7000); Neutrophils Percent Auto 63.3 % (50-75); Platelet Count 276 X10^3/uL (150-400); Red Blood Cell Count 4.48 X10^6/uL (4.0-5.2); Red Cell Distribution Width 13.5 % (11.6-14.8); White Blood Cell Count 5.8 X10^3/uL (4.5-11.0)
[2024-03-16 10:18] LABS: Alanine Aminotransferase 16 IU/L (<35); Albumin 4.1 g/dL (3.5-5.0); Albumin Globulin Ratio 1.5 (1.0-2.8); Alkaline Phosphatase 49 U/L (38-126); Aspartate Aminotransferase 20 IU/L (14-36); BUN Creatinine Ratio 28.4 (6-22); Bilirubin Total 0.7 mg/dL (0.2-1.3); Blood Urea Nitrogen 19 mg/dL (7-17); Calcium 8.8 mg/dL (8.4-10.2); Carbon Dioxide 29 mmol/L (22-32); Chloride 104 mmol/L (98-107); Cholesterol 144 mg/dL (140-199); Estimated Glomerular Filt Rate > 60 mL/min (>60); Globulin 2.8 g/dL (1.7-4.1); Glucose 91 mg/dL (70-100); HDL Cholesterol 46 mg/dL (40-60); HEMOLYSIS < 15 (0-50); LDL Cholesterol Calculated 85 mg/dL (<100); Potassium 4.1 mmol/L (3.4-5.1); Sodium 138 mmol/L (137-145); Total Protein 6.9 g/dL (6.3-8.2); Triglycerides 64 mg/dL (35-150)
[2024-03-16 10:38] LABS: Free T3, Triiodothyronine Free 5.33 pg/mL (2.77-5.27)
[2024-03-16 10:45] LABS: Cortisol AM (Before 10AM) 14.4 ug/dL (4.46-22.7)
[2024-03-16 10:52] LABS: TSH w/ Reflex to FT4 2.09 uIU/mL (0.47-4.68)
[2024-03-16 11:15] LABS: Vitamin B12 364 pg/mL (239-931)
[2024-03-17 08:13] LABS: Apolipoprotein B 73 mg/dL (<90)
== END ==
PROVIDERS: Physician Assistant; PCP Family Medicine; Referring Provider Family Medicine; Visit Provider Family Medicine
DX: M54.2 Cervicalgia (principal); G62.9 Polyneuropathy, unspecified; N92.0 Excessive and frequent menstruation with regular cycle; F41.1 Generalized anxiety disorder; F41.0 Panic disorder [episodic paroxysmal anxiety]; E05.00 Thyrotoxicosis with diffuse goiter without thyrotoxic crisis or storm; F41.8 Other specified anxiety disorders; N94.6 Dysmenorrhea, unspecified
CPT/HCPCS: 36415; 80053; 80061; 81291; 82172; 82533; 82607; 84439; 84443; 84481; 85025